=== PATIENT | male | born 1945 | race Caucasian/White ===

== ENCOUNTER 2016-12-10 10:04 | Emergency (ER) | payer MEDICARE, OTHER ==
[~2016-12-10] VITALS: Ht 167.6 cm; Wt 65.0 kg
[2016-12-10 10:08] VITALS: Ht 167.6 cm; Wt 65.0 kg
--- NOTE | 2016-12-10 11:45 | ERD ---
ER Documentation Chief Complaint Date/Time DATE: 12/10/16 TIME: 11:41 Chief Complaint [place] of growth on penis x 20 days HPI This is a 71-year-old male presents to the ER for penis pain. 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 Patient states that he is here to get this treated. Patient denies any fevers or chills. He denies any difficulty urinating, denies urinary frequency or dysuria. Denies any night sweats or weight loss. ROS 12 point review of systems was done, all negative except per HPI. Allergies Allergies: Coded Allergies: No Known Allergy (Unverified , 12/10/16) Physical Exam Vitals Vital Signs Date Time Temp Pulse Resp B/P Pulse Ox O2 Delivery O2 Flow Rate FiO2 12/10/16 10:08 97.8 89 16 120/71 99 Physical Exam GENERAL: The patient is well developed and appropriate for usual state of health , in no apparent distress. HEENT: Atraumatic. CHEST: Clear to auscultation bilaterally. There are no rales, wheezes or rhonchi. HEART: Regular rate and rhythm. No murmurs, clicks, rubs or gallops. : patient has an ulcerative, yellow lesion that is about 3cm*2cm in lenght to the left side of the head of the penis. no evidence oh phimosis or paraphimosis. no testicular pain or swelling NEURO: Alert and oriented. SKIN:The skin is warm and dry. Procedures/MDM This is a 71-year-old male presents to the ER with a lesion to his penis. Patient does have Medicare, I instructed the patient's daughter that she needs to follow-up with the urologist as soon as possible. I gave her a list of urologic urologist which except straight Medicare. At this time patient does not have any evidence of any urological emergency, and stable for outpatient follow-up. Patient is to follow-up with urologist as soon as possible return to ER sooner if symptoms worsen. Medical decision making sure with patient and his daughter he understands and agrees with plan. Departure Diagnosis: Primary Impression: Lesion of penis Condition: Stable Patient Instructions: Care of the Uncircumcised Penis Referrals: MEYL BROWN MD,LES SHAVER MD, MD Additional Instructions: Specialist:Usted tiene chacorta condicin mdica que requiere que leny a un especialista dentro de los prximos 1-2 marcos.POR FAVOR,CON BECKER SEGUIMIENTO DE PRIMARIA PHSICIAN refferal. SI USTED NO TIENE UN MDICO GENERAL Y / O USTED NO PUEDE PAGAR carlos a un mdico,los siguientes laureano RECURSOS sido suministrado a usted. ES BECKER RESPONSABILIDAD PARA SER VISTOS POR EL ESPECIALISTA: UROLOGO CHRISTIANO ATKINS Dec 10, 2016 11:45
== END 2016-12-10 12:29 | disposition home or self-care (01) ==
LOC: FTE 10:04
DX: N48.89 Other specified disorders of penis (principal)
CPT/HCPCS: 99282

== ENCOUNTER 2017-03-05 14:06 | Inpatient (IN) | payer MEDICARE, OTHER ==
[~2017-03-05] VITALS: Ht 167.6 cm; Wt 67.5 kg
--- NOTE | 2017-03-05 15:14 | ERD ---
ER Documentation Chief Complaint Chief Complaint PENILE CANCER. REFERRAL FROM D/T URINARY RETENTION & NEED FOR CATH HPI The patient is a 71-year-old male, presenting to the ER because he has not been able to void well for the last 5 days, complains of painful urination. He had history of penile cancer undergoing chemotherapy at [facility]. He denies fever, chills, neck pain, chest pain, dyspnea, vomiting, he complains of constipation. He does not smoke nor drink Past medical history: History of penile cancer Past surgical history: Penile cancer related surgery recently, the details unclear ROS All systems reviewed and are negative except as per history of present illness. Medications Home Meds Reported Medications Filgrastim-Sndz (Zarxio) 300 Mcg/0.5 Ml Syringe, 300 MCG IJ DAILY TAKE FOR 7 DAYS ,START DATE 03/04/17 03/05/17 Glipizide* (Glipizide*) 5 Mg Tablet, 5 MG PO AC BREAKFAST DINNER, TAB 03/05/17 Docusate Sodium* (Colace*) 100 Mg Capsule, 100 MG PO BID, #60 CAP 03/05/17 Metoprolol Tartrate* (Lopressor*) 25 Mg Tab, 25 MG PO BID, #60 TAB 03/05/17 Hydrocodone/Acetaminophen (Rockfall 10-325 Tablet) 1 Each Tablet, 1 EACH PO Q6H, TAB 03/05/17 Aspirin (Aspir-Low) 81 Mg Tablet.dr, 81 MG PO DAILY 03/05/17 Allergies Allergies: Coded Allergies: No Known Allergy (Unverified , 03/05/17) PMhx/Soc Hx Alcohol Use: No Hx Substance Use: No Hx Tobacco Use: No Physical Exam Vitals Vital Signs Date Time Temp Pulse Resp B/P Pulse Ox O2 Delivery O2 Flow Rate FiO2 03/05/17 14:13 98.6 83 18 101/63 97 Physical Exam Const: No acute distress. Head: Atraumatic. Eyes: Normal Conjunctiva. ENT: Normal External Ears, Nose and Mouth. Neck: Full range of motion. No meningismus. Resp: Clear to auscultation bilaterally. Cardio: Regular rate and rhythm. Abd: Soft, distended Urinary bladder, normal bowel sounds, non tender. Skin: No petechiae or rashes. Back: No midline or flank tenderness. Ext: No cyanosis, or edema. Neur: Awake and alert. No focal deficit Psych: Normal Mood and Affect. Result Diagram: 03/05/17 1555 03/05/17 1555 Results 24 hrs Laboratory Tests Test 03/05/17 15:55 03/05/17 17:00 03/05/17 17:07 White Blood Count 16.710^3/ul Red Blood Count 3.6110^6/ul Hemoglobin 12.6g/dl Hematocrit 37.0% Mean Corpuscular Volume 102.5fl Mean Corpuscular Hemoglobin 34.9pg Mean Corpuscular Hemoglobin Concent 34.1g/dl Red Cell Distribution Width 14.0% Platelet Count 43166^3/UL Mean Platelet Volume 11.3fl Neutrophils % 82.1% Segmented Neutrophils % (Manual) 90% Band Neutrophils % (Manual) 5% Lymphocytes % 4.0% Lymphocytes % (Manual) 4% Monocytes % 0.6% Monocytes % (Manual) 1% Eosinophils % 0.1% Basophils % 0.5% Nucleated Red Blood Cells % 0.0/100WBC Neutrophils # 13.710^3/ul Neutrophils # (Manual) 15.210^3/ul Band Neutrophils # 0.810^3/ul Absolute Lymphocytes (Manual) 0.610^3/ul Lymphocytes # 0.710^3/ul Monocytes # 0.110^3/ul Absolute Monocytes (Manual) 0.110^3/ul Eosinophils # 0.010^3/ul Basophils # 0.110^3/ul Nucleated Red Blood Cells # 0.010^3/ul Platelet Morphology Comment @See below Sodium Level 136mmol/L Potassium Level 3.4mmol/L Chloride Level 100mmol/L Carbon Dioxide Level 25mmol/L Anion Gap 14 Blood Urea Nitrogen 35mg/dl Creatinine 1.74mg/dl Glucose Level 166mg/dl Calcium Level 8.2mg/dl Urine Color STRAW Urine Clarity CLEAR Urine pH 6.0 Urine Specific [place] 1.011 Urine Ketones NEGATIVEmg/dL Urine Nitrite NEGATIVEmg/dL Urine Bilirubin NEGATIVEmg/dL Urine Urobilinogen NEGATIVEmg/dL Urine Leukocyte Esterase NEGATIVELeu/ul Urine Microscopic RBC 1/HPF Urine Microscopic WBC 3/HPF Urine Bacteria FEW/HPF Urine Hemoglobin 1+mg/dL Urine Glucose 1+mg/dL Urine Total Protein 1+mg/dl Bedside Urine pH (LAB) 7.0 Bedside Urine Protein (LAB) 1+ Bedside Urine Glucose (UA) 0.1% Bedside Urine Ketones (LAB) Negative Bedside Urine Blood 1+ Bedside Urine Nitrite (LAB) Negative Bedside Urine Leukocyte Esterase (L Negative Current Medications Medications (Trade) Dose Ordered Sig/Angelo Route PRN Reason Start Time Stop Time Status Last Admin Dose Admin Lidocaine/ Epinephrine (Xylocaine 1%/ Epi (Pf)) 30 ml NOW STAT INJ 03/05/17 15:51 03/05/17 15:53 DC Bisacodyl (Dulcolax Supp) 10 mg ONCE ONCE IL 03/05/17 17:30 03/05/17 17:31 DC 03/05/17 17:23 Ondansetron HCl (Zofran Odt) 4 mg ONCE STAT ODT 03/05/17 17:41 03/05/17 17:45 DC 03/05/17 18:14 Acetaminophen/ Hydrocodone Bitart 1 tab 1 tab ONCE ONCE PO 03/05/17 18:00 03/05/17 18:01 DC 03/05/17 18:14 Piperacillin Sod/ Tazobactam Sod (Zosyn 2.25gm/ 50ml (Pmx)) 50 ml @ 100 mls/hr ONCE ONCE IVPB 03/05/17 18:30 03/05/17 18:59 03/05/17 18:14 Procedures/[place] [address] Radiology Main Line: [phone] DIAGNOSTIC IMAGING REPORT Patient: RENAE MATA : 1945 Age: 71 Sex: M MR #: [id number] DOS: 03/05/17 0000 Ordering MD: RALF HENDERSON MD Location: E/R Room/Bed: PROCEDURE: XR Chest 1 View. CLINICAL INDICATION: Cough. TECHNIQUE: AP view of the chest was obtained. COMPARISON: None. FINDINGS: The cardiomediastinal silhouette is within normal limits. Diffuse mild interstitial prominence is seen in both lungs. No consolidations are identified. No pneumothorax is seen. Osseous structures are intact. IMPRESSION: Diffuse mild interstitial prominence in both lungs. Interstitial prominence could be chronic. RPTAT: AA .Gabino Queen MD, MD Date Time Electronically viewed and signed by .Gabino Queen MD, on 03/05/2017 17:05 .P/ CC: RALF HENDERSON MD MEDICAL MAKING DECISION: The patient is a 71-year-old male, presenting with acute kidney injury, acute dural tension, acute hypokalemia, acute constipation. He was treated with Rockfall 10 mg p.o. for pain, Zofran ODT for nausea, Zosyn IV empirically decode due to leukocytosis. The differential diagnoses considered include but are not limited to UTI, pyelonephritis, pneumonia. Consultation: I discussed the patient with the on-call urologist Dr. Walters, who came to the ER and inserted a suprapubic catheter Departure Diagnosis: Primary Impression: Retention of urine Additional Impressions: ANTHONY (acute kidney injury) Hypokalemia Constipation Condition: Stable Comments I discussed the findings with the patient. I discussed the patient with the on- call hospitalist Dr. Fowler at 6:25 PM. who was made aware of the lab, the treatment, the patient condition. The patient is admitted to [facility] Disclaimer: Inadvertent spelling and grammatical errors are likely due to EHR/ dictation software use and do not reflect on the overall quality of patient care. Also, please note that the electronic time recorded on this note does not necessarily reflect the actual time of the patient encounter. RALF HENDERSON MD Mar 05, 2017 15:14
[2017-03-05] MEDS ORDERED: LIDOCAINE 1%/EPI 30 ML INJ INJ STA (15:51)
[2017-03-05] MEDS ORDERED: ASPI81TA50 PO (16:04)
[2017-03-05 16:06] LABS: ABNORMAL IP MESSAGE 1; BASOPHIL # 0.1 10^3/ul (0.0-0.1); BASOPHILS % 0.5 % (0.0-2.0); EOSINOPHILS % 0.1 % (0.0-7.0); HEMOGLOBIN 12.6 g/dl (14.0-18.0); LYMPHOCYTES # 0.7 10^3/ul (0.8-2.9); MEAN CORPUSCULAR HEMOGLOBIN 34.9 pg (29.0-33.0); MEAN CORPUSCULAR HGB CONC 34.1 g/dl (32.0-37.0); MEAN CORPUSCULAR VOLUME 102.5 fl (82.0-101.0); MEAN PLATELET VOLUME 11.3 fl (7.4-10.4); MONOCYTE # 0.1 10^3/ul (0.3-0.9); MONOCYTES % 0.6 % (0.0-11.0); NEUTROPHIL # 13.7 10^3/ul (1.6-7.5); NEUTROPHILS % 82.1 % (39.0-77.0); PLATELET COUNT 151 10^3/UL (140-415); POSITIVE DIFF @See below; RED BLOOD COUNT 3.61 10^6/ul (4.70-6.10); WHITE BLOOD COUNT 16.7 10^3/ul (4.8-10.8)
[2017-03-05] MEDS ORDERED: HYDR-902 PO (16:06)
[2017-03-05] MEDS ORDERED: METO-448 PO (16:07)
[2017-03-05] MEDS ORDERED: DOCU-144 PO (16:08)
[2017-03-05] MEDS ORDERED: GLIP5TAB13 PO (16:08)
[2017-03-05] MEDS ORDERED: FILG300S2 IJ (16:09)
[2017-03-05 16:58] LABS: CALCIUM 8.2 mg/dl (8.4-10.2); CREATININE 1.74 mg/dl (0.61-1.24); POTASSIUM 3.4 mmol/L (3.5-5.1)
--- NOTE | 2017-03-05 17:05 | RADRPT ---
PROCEDURE: XR Chest 1 View. CLINICAL INDICATION: Cough. TECHNIQUE: AP view of the chest was obtained. COMPARISON: None. FINDINGS: The cardiomediastinal silhouette is within normal limits. Diffuse mild interstitial prominence is se en in both lungs. No consolidations are identified. No pneumothorax is seen. Osseous structures ar e intact. IMPRESSION: Diffuse mild interstitial prominence in both lungs. Interstitial prominence could be chronic. RPTAT: AA .Gabino Queen MD, Date Time Electronically viewed and signed by .Gabino Queen MD, on 03/05/2017 17:05 .P/
[2017-03-05 17:10] LABS: URINE BLOOD (Dip) POC 1+ (NEGATIVE)
[2017-03-05] MEDS ORDERED: BISACODYL 10 MG SUPP PR ONE (17:30)
[2017-03-05 17:34] LABS: MONOCYTES % (M) 1 % (0-11)
[2017-03-05] MEDS ORDERED: ONDANSETRON (ODT) 4 MG TAB ODT STA (17:41)
[2017-03-05 17:55] LABS: ADD UMIC YES; UR ASCORBIC ACID NEGATIVE (NEGATIVE); UR BACTERIA FEW /HPF (NONE SEEN); UR BILIRUBIN (Dip) NEGATIVE (NEGATIVE); UR BLOOD (Dip) 1+ mg/dL (NEGATIVE); UR CLARITY CLEAR (CLEAR); UR COLOR STRAW (YELLOW); UR GLUCOSE (Dip) 1+ mg/dL (NEGATIVE); UR KETONES (Dip) NEGATIVE (NEGATIVE); UR LEUKOCYTE ESTERASE (Dip) NEGATIVE Leu/ul (NEGATIVE); UR NITRITE (Dip) NEGATIVE (NEGATIVE); UR RBC 1 /HPF (0-5); UR SPECIFIC GRAVITY (Dip) 1.011 (1.003-1.030); UR TOTAL PROTEIN (Dip) 1+ mg/dl (NEGATIVE); UR UROBILINOGEN (Dip) NEGATIVE (NEGATIVE)
[2017-03-05] MEDS ORDERED: HYDROCODONE/APAP (10/325) TAB PO ONE (18:00)
[2017-03-05] MEDS ORDERED: PIPER-TAZO 2.25 GM (PMX) 50 ML IVPB ONE (18:30)
--- NOTE | 2017-03-05 19:19 | CONS ---
Date/Time of Note Date/Time of Note DATE: 03/05/17 TIME: 19:16 Assessment/Plan Assessment/Plan Chief Complaint/Hosp Course Inability to insert catheter I did an ultrasound on him his bladder is markedly distended Plan Obtain consent to insert a suprapubic tube Problems: Consultation Date/Type/Reason Admit Date/Time Date of Consultation: Mar 05, 2017 Type of Consultation: uro Reason for Consultation Urinary retention unable to insert catheter Hx of Present Illness Thank you for request for evaluation This gentleman is being treated for penile cancer at [facility]. He has been unable to urinate for several days and unable to defecate. The nurses and physicians were unable to insert a urethral catheter. His bladder is reportedly distended and they called me to see him. Patient does not speak Estonian were able to communicate through copy reader. Social History Smoking Status: Never smoker Exam/Review of Systems Vital Signs Vitals Vital Signs Date Time Temp Pulse Resp B/P Pulse Ox O2 Delivery O2 Flow Rate FiO2 03/05/17 14:13 98.6 83 18 101/63 97 Exam No distress Constitutional: alert, oriented Respiratory: clear to auscultation, normal air movement Gastrointestinal: soft (Bladder distended and tender) Genitourinary - Male: other (He has bilateral groin incisions consistent with lymph node dissection. His penis is atraumatic.) Results Result Diagram: 03/05/17 1555 03/05/17 1555 Results 24 hrs Laboratory Tests Test 03/05/17 15:55 03/05/17 17:00 03/05/17 17:07 White Blood Count 16.7 H Red Blood Count 3.61 L Hemoglobin 12.6 L Hematocrit 37.0 L Mean Corpuscular Volume 102.5 H Mean Corpuscular Hemoglobin 34.9 H Mean Corpuscular Hemoglobin Concent 34.1 Red Cell Distribution Width 14.0 Platelet Count 151 Mean Platelet Volume 11.3 H Neutrophils % 82.1 H Segmented Neutrophils % (Manual) 90 H Band Neutrophils % (Manual) 5 H Lymphocytes % 4.0 L Lymphocytes % (Manual) 4 L Monocytes % 0.6 Monocytes % (Manual) 1 Eosinophils % 0.1 Basophils % 0.5 Nucleated Red Blood Cells % 0.0 Neutrophils # 13.7 H Neutrophils # (Manual) 15.2 H Band Neutrophils # 0.8 H Absolute Lymphocytes (Manual) 0.6 L Lymphocytes # 0.7 L Monocytes # 0.1 L Absolute Monocytes (Manual) 0.1 L Eosinophils # 0.0 Basophils # 0.1 Nucleated Red Blood Cells # 0.0 Platelet Morphology Comment @See below Sodium Level 136 Potassium Level 3.4 L Chloride Level 100 Carbon Dioxide Level 25 Anion Gap 14 Blood Urea Nitrogen 35 H Creatinine 1.74 H Glucose Level 166 Calcium Level 8.2 L Urine Color STRAW Urine Clarity CLEAR Urine pH 6.0 Urine Specific [place] 1.011 Urine Ketones NEGATIVE Urine Nitrite NEGATIVE Urine Bilirubin NEGATIVE Urine Urobilinogen NEGATIVE Urine Leukocyte Esterase NEGATIVE Urine Microscopic RBC 1 Urine Microscopic WBC 3 Urine Bacteria FEW A Urine Hemoglobin 1+ H Urine Glucose 1+ H Urine Total Protein 1+ H Bedside Urine pH (LAB) 7.0 Bedside Urine Protein (LAB) 1+ H Bedside Urine Glucose (UA) 0.1% H Bedside Urine Ketones (LAB) Negative Bedside Urine Blood 1+ H Bedside Urine Nitrite (LAB) Negative Bedside Urine Leukocyte Esterase (L Negative MELY BROWN MD Mar 05, 2017 19:19
--- NOTE | 2017-03-05 19:21 | OPR ---
Date/Time of Note Date/Time of Note DATE: 03/05/17 TIME: 19:19 Operative Report Procedure Date: Mar 05, 2017 Preoperative Diagnosis Urinary retention inability to insert Ibrahim catheter Postoperative Diagnosis Same Operation/Procedure Performed Insertion of suprapubic tube Surgeon see signature line Hot Braider None Anesthesia Type: other (Local anesthesia) Estimated Blood Loss: minimal Transfusion none Specimen Urine Grafts/Implants Suprapubic tube none Complications none Procedure Description Suprapubic area is prepped and draped in sterile fashion the location of penetration is identified by ultrasound. The area is anesthetized with 1% lidocaine with epinephrine. Spinal needle was used to confirm. A buster is made in the incision. A Bard suprapubic tube was inserted without difficulty and pushed into the right position. Good flow and drainage is obtained which is blood free. The balloon is inflated. Sutured into position with silk suture. Dressing is applied. Patient tolerated procedure well. This was performed in the emergency room MELY BROWN MD Mar 05, 2017 19:21
[2017-03-05] MEDS ORDERED: DOCUSATE SODIUM 100 MG CAP PO PRN (19:30)
[2017-03-05] MEDS ORDERED: BISACODYL 10 MG SUPP PR PRN (19:30)
[2017-03-05] MEDS ORDERED: NA PHOSPHATE/BIPHOS 133 ML ENEMA PR PRN (19:30)
[2017-03-05] MEDS ORDERED: ONDANSETRON 4 MG INJ IV PRN (19:30)
[2017-03-05] MEDS ORDERED: ACETAMINOPHEN 325 MG TAB PO PRN (19:30)
[2017-03-05] MEDS ORDERED: NACL 0.9% 3 ML SYG IV SCH (19:30)
[2017-03-05] MEDS ORDERED: OXYCODONE/ACETAMINOPHEN (5/325) TAB PO PRN (19:30)
[2017-03-05] MEDS ORDERED: morphine 2 MG INJ IV PRN (19:30)
[2017-03-05] MEDS ORDERED: BISACODYL (EC) 5 MG TAB PO PRN (19:30)
[2017-03-05 20:40] VITALS: Ht 167.6 cm; Wt 67.5 kg
[2017-03-05 21:00] VITALS: BP 128/64; RESP 19
[2017-03-05] MEDS ORDERED: SENNA/DOCUSATE NA (8.6MG/50MG) TAB PO SCH (21:00)
--- NOTE | 2017-03-05 22:04 | HP ---
Date/Time of Note Date/Time of Note DATE: 03/05/17 TIME: 21:58 Assessment/Plan VTE Prophylaxis VTE Prophylaxis Intervention: ambulation Lines/Catheters IV Catheter Type (from Nrsg): Peripheral IV Reason Cath still needed: urinary retention (Suprapubic catheter) Assessment/Plan Chief Complaint/Hosp Course Assessment and plan 1. Acute renal failure. stable treat obstruction 2. Obstructive uropathy. Suprapubic catheter status. May need home health 3. Penile cancer. Outpatient oncology 4. Chronic diabetes metabolic syndrome 5. Problems: HPI/ROS Admit Date/Time Admit Date/Time Hx of Present Illness 71-year-old gentleman who has not moved his urine in 3 days. Was referred for by primary for urology eval. In ER unable to Place Ibrahim. Urology placed suprapubic. Patient states of having constipation for 5 days. No witnessed hematuria hematochezia. No fever chills vomiting. Possible nausea. Mild edema. Denies any urinary issues prior to aminuria. Patient had surgery about a month ago for penile cancer. ER: Stable vital signs. ROS Neuro: No loss of speech or vision or headache Cardiovascular: No chest pain no dyspnea positive edema Lungs: No cough no wheezing no fever Abdomen: Pain nausea no vomiting. Positive constipation Genitourinary: Oliguria lower abdominal pain no fever Musculoskeletal: Edema but no gait dysfunction, Psychiatry: No anxiety agitation depression Constitutional: No fevers or chills. Weight loss? Hematologic; no hematochezia melena hematuria Endocrine: Positive diabetes no thyroid dysfunction or dyslipidemia PMH/Family/Social Past Medical History Medical History: cancer (Penial Ca; status post surgery.), diabetes, other ( Metabolic syndrome. Cataracts) Past Surgical History Penile cancer resection Family History Significant Family History: other (Stomach cancer) Social History Alcohol Use: none Smoking Status: Former smoker Exam/Review of Systems Vital Signs Vitals Vital Signs Date Time Temp Pulse Resp B/P Pulse Ox O2 Delivery O2 Flow Rate FiO2 03/05/17 14:13 98.6 83 18 101/63 97 Exam Exam No pallor icterus adenopathy or carotid bruits Regular no murmur rub gallop Clear bilaterally Bs + mild tender; nd; no r/r/g.Suprapubic C/D/I Mild edema negative Homans Labs Result Diagram: 03/05/17 1555 03/05/17 1552 Medications Medications Current Medications Sodium Chloride (NS) 1,000 ml @ 80 mls/hr [id number] IV ; Start 03/05/17 at 19:23 Ondansetron HCl (Zofran Inj) 4 mg Q6H PRN IV NAUSEA AND/OR VOMITING; Start at 19:30 Acetaminophen (Tylenol Tab) 650 mg Q6H PRN PO PAIN LEVEL 1-3 OR FEVER; Start 03/05/17 at 19:30 Oxycodone/ Acetaminophen (Percocet (5/ 325)) 1 tab Q6H PRN PO MODERATE PAIN LEVEL 4-6; Start 03/05/17 at 19:30 Morphine Sulfate (morphine) 2 mg Q4H PRN IV SEVERE PAIN LEVEL 7-10; Start at 19:30 Docusate Sodium (Colace) 100 mg Q12H PRN PO CONSTIPATION; Start 03/05/17 at 19 :30 Bisacodyl (Dulcolax) 5 mg DAILY PRN PO CONSTIPATION; Start 03/05/17 at 19:30 Bisacodyl (Dulcolax Supp) 10 mg DAILY PRN [place] CONSTIPATION; Start 03/05/17 at 19:30 Sodium Biphosphate/ Sodium Phosphate (Fleet Enema) 133 ml DAILY PRN [place] CONSTIPATION; Start 03/05/17 at 19:30 Enoxaparin Sodium (Lovenox) 30 mg DAILY SC ; Start 03/06/17 at 09:00 Senna/Docusate Sodium (Senokot-S) 2 tab HS PO ; Start 03/05/17 at 21:00 HAILE BANKS MD Mar 05, 2017 22:04
[2017-03-05] MEDS: SOD CHLORIDE 0.9% 1,000 ML IV SCH (22:35)
[2017-03-05] MEDS: INSULIN ASPART [NOVOLOG] 3 ML PEN SC SCH (23:06)
[2017-03-05] MEDS ORDERED: GLUCOSE GEL 15 GRAM TUBE BUCCAL PRN (23:30)
[2017-03-05] MEDS ORDERED: GLUCOSE GEL 15 GRAM TUBE PO PRN ×2 (23:30)
[2017-03-05] MEDS ORDERED: GLUCAGON 1 MG INJ IM PRN (23:30)
[2017-03-05] MEDS ORDERED: DEXTROSE 50% 50 ML SYRINGE IV PRN ×2 (23:30)
--- NOTE | 2017-03-06 00:50 | RADRPT ---
PROCEDURE: ULTRASOUND RETROPERITONEUM CLINICAL INDICATION: 71-year-old male with flank pain. TECHNIQUE: Multiple sonographic images of the retroperitoneum were obtained. The images were revi ewed on a PACS workstation. COMPARISON: None. FINDINGS: The kidneys are well visualized. The right kidney measures 9.8 x 5.3 x 5.2 cm. The left kidney measu res 10.7 x 5.7 x 5.1 cm. There is a left lower pole renal cyst measuring 11 x 9 mm. There is mild bi lateral hydronephrosis. There is a suprapubic catheter identified within the bladder with a small r esidual amount of urine identified. Incidentally identified is a shadowing stone within the gallblad kinjal measuring approximate 2.1 cm. IMPRESSION: 1. Mild bilateral hydronephrosis. 2. Left lower pole renal cyst. 3. Suprapubic catheter within the bladder. 4. Incidental gallstone. .Gomez Mcfarland MD, Date Time Electronically viewed and signed by .Gomez Mcfarland MD, on 03/06/2017 00:50 .M/
[2017-03-06] MEDS ORDERED: ACCU-CHEK XX SCH ×2 (02:00)
[2017-03-06 05:15] LABS: ABNORMAL IP MESSAGE 1; BASOPHIL # 0.1 10^3/ul (0.0-0.1); BASOPHILS % 0.8 % (0.0-2.0); EOSINOPHILS # 0.1 10^3/ul (0.0-0.5); EOSINOPHILS % 0.8 % (0.0-7.0); HEMATOCRIT 37.5 % (42.0-52.0); HEMOGLOBIN 12.7 g/dl (14.0-18.0); LYMPHOCYTES # 0.8 10^3/ul (0.8-2.9); LYMPHOCYTES % 6.8 % (15.0-51.0); MEAN CORPUSCULAR HEMOGLOBIN 34.4 pg (29.0-33.0); MEAN CORPUSCULAR HGB CONC 33.9 g/dl (32.0-37.0); MEAN CORPUSCULAR VOLUME 101.6 fl (82.0-101.0); MEAN PLATELET VOLUME 11.6 fl (7.4-10.4); MONOCYTE # 0.1 10^3/ul (0.3-0.9); NEUTROPHIL # 8.7 10^3/ul (1.6-7.5); NEUTROPHILS % 73.9 % (39.0-77.0); PLATELET COUNT 149 10^3/UL (140-415); POSITIVE DIFF @See below; RED BLOOD COUNT 3.69 10^6/ul (4.70-6.10); RED CELL DISTRIBUTION WIDTH 13.7 % (11.5-14.5); WHITE BLOOD COUNT 11.8 10^3/ul (4.8-10.8)
[2017-03-06 05:29] LABS: INR 0.9; PROTIME 12.1 Sec (12.2-14.2); PT RATIO 0.9
[2017-03-06 05:52] LABS: ALBUMIN 3.1 g/dl (3.3-4.9); BILIRUBIN,INDIRECT 0.6 mg/dl (0-1.1); BILIRUBIN,TOTAL 0.6 mg/dl (0.2-1.3); CALCIUM 8.7 mg/dl (8.4-10.2); CREATININE 1.56 mg/dl (0.61-1.24); MAGNESIUM 2.6 mg/dl (1.7-2.5); POTASSIUM 3.5 mmol/L (3.5-5.1); TOTAL PROTEIN 6.2 g/dl (6.1-8.1)
[2017-03-06 05:59] LABS: ALBUMIN 3.2 g/dl (3.3-4.9); ALBUMIN/GLOBULIN RATIO 0.91; BILIRUBIN,INDIRECT 0.6 mg/dl (0-1.1); BILIRUBIN,TOTAL 0.6 mg/dl (0.2-1.3); CALCIUM 8.6 mg/dl (8.4-10.2); CREATININE 1.64 mg/dl (0.61-1.24); POTASSIUM 3.4 mmol/L (3.5-5.1); TOTAL PROTEIN 6.7 g/dl (6.1-8.1)
[2017-03-06 06:16] LABS: THYROID STIMULATING HORMONE 0.276 MIU/L (0.465-4.680)
[2017-03-06 07:43] VITALS: BP 104/76; RESP 20
[2017-03-06] MEDS: INSULIN ASPART [NOVOLOG] 3 ML PEN SC SCH ×3 (08:00→17:12)
[2017-03-06 08:02] LABS: EOSINOPHILS % (M) 1 % (0-7); MONOCYTES % (M) 1 % (0-11); PLATELET ESTIMATE NORMAL; REACTIVE LYMPHOCYTES% (M) 1 % (0-0)
[2017-03-06] MEDS: SOD CHLORIDE 0.9% 1,000 ML IV SCH (08:22)
[2017-03-06] MEDS ORDERED: POLYETHYLENE GLYCOL 17 GM PACKET PO SCH (09:00)
[2017-03-06] MEDS ORDERED: ENOXAPARIN 30 MG/0.3 ML SYG SC SCH (09:00)
[2017-03-06] MEDS ORDERED: POTASSIUM CHLORIDE (SR) 20 MEQ TAB PO STA (15:04)
--- NOTE | 2017-03-06 15:26 | PN ---
Date/Time of Note Date/Time of Note DATE: 03/06/17 TIME: 15:05 Assessment/Plan VTE Prophylaxis VTE Prophylaxis Intervention: SCD's Lines/Catheters IV Catheter Type (from Nrs): Peripheral IV Urinary Cath still in place: No Assessment/Plan Assessment/Plan 1. Obstructive uropathy. S/p suprapubic catheter, stable, needs teaching for emptying the bag, home with home health tomorrow 2. Acute renal failure. stable, follow up with BMP 3. Penile cancer. Outpatient oncology 4. DM, on insulins 5. Hypokalemia, KCL Subjective 24 Hr Interval Summary Free Text/Dictation afebrile. Exam/Review of Systems Vital Signs Vitals Vital Signs Date Time Temp Pulse Resp B/P Pulse Ox O2 Delivery O2 Flow Rate FiO2 03/06/17 07:43 98.3 78 20 104/76 98 Intake and Output 03/05/17 03/05/17 03/06/17 15:00 23:00 07:00 Intake Total 1310 ml Output Total 1800 ml Balance -490 ml Exam Constitutional: alert, oriented, well developed Psych: nl mood/affect, no complaints Head: atraumatic, normocephalic Eyes: EOMI, PERRL, nl conjunctiva, nl lids, nl sclera ENMT: nl external ears & nose, nl lips & teeth, nl nasal mucosa & septum Neck: non-tender, supple Respiratory: clear to auscultation, normal air movement, No congested cough, No crackles/rales, No diminished breath sounds, No intercostal retraction, No labored breathing, No other, No respirations, No tactile fremitus, No wheezing Cardiovascular: nl pulses, regular rate and rhythm, No S3, No S4, No bruits, No diastolic murmur, No edema, No gallop, No irregular rhythm, No jugular venous distention (JVD), No murmurs/extra sounds, No other, No rub, No systolic murmur Gastrointestinal: nl liver, spleen, non-tender, soft, No ascites, No bowel sounds, No distended, No firm, No hepatomegaly, No mass , No other, No rebound or guarding, No splenomegaly, No surgical scars, No tender Musculoskeletal: nl extremities to inspection Extremities: normal pulses, No calf tenderness, No clubbing, No cyanosis, No edema, No other, No palpable cord, No pitting pedal edema, No tenderness Neurological: [employer] II-XII intact, nl mental status, nl speech, nl strength Skin: nl turgor Lymph: nl lymph nodes Results Result Diagram: 03/06/17 0502 03/06/17 0502 Results 24 hrs Laboratory Tests Test 03/05/17 15:55 03/05/17 17:00 03/05/17 17:07 03/05/17 23:03 White Blood Count 16.7 H Red Blood Count 3.61 L Hemoglobin 12.6 L Hematocrit 37.0 L Mean Corpuscular Volume 102.5 H Mean Corpuscular Hemoglobin 34.9 H Mean Corpuscular Hemoglobin Concent 34.1 Red Cell Distribution Width 14.0 Platelet Count 151 Mean Platelet Volume 11.3 H Neutrophils % 82.1 H Segmented Neutrophils % (Manual) 90 H Band Neutrophils % (Manual) 5 H Lymphocytes % 4.0 L Lymphocytes % (Manual) 4 L Monocytes % 0.6 Monocytes % (Manual) 1 Eosinophils % 0.1 Basophils % 0.5 Nucleated Red Blood Cells % 0.0 Neutrophils # 13.7 H Neutrophils # (Manual) 15.2 H Band Neutrophils # 0.8 H Absolute Lymphocytes (Manual) 0.6 L Lymphocytes # 0.7 L Monocytes # 0.1 L Absolute Monocytes (Manual) 0.1 L Eosinophils # 0.0 Basophils # 0.1 Nucleated Red Blood Cells # 0.0 Platelet Morphology Comment @See below Sodium Level 136 Potassium Level 3.4 L Chloride Level 100 Carbon Dioxide Level 25 Anion Gap 14 Blood Urea Nitrogen 35 H Creatinine 1.74 H Glucose Level 166 Calcium Level 8.2 L Urine Color STRAW Urine Clarity CLEAR Urine pH 6.0 Urine Specific [place] 1.011 Urine Ketones NEGATIVE Urine Nitrite NEGATIVE Urine Bilirubin NEGATIVE Urine Urobilinogen NEGATIVE Urine Leukocyte Esterase NEGATIVE Urine Microscopic RBC 1 Urine Microscopic WBC 3 Urine Bacteria FEW A Urine Hemoglobin 1+ H Urine Glucose 1+ H Urine Total Protein 1+ H Bedside Urine pH (LAB) 7.0 Bedside Urine Protein (LAB) 1+ H Bedside Urine Glucose (UA) 0.1% H Bedside Urine Ketones (LAB) Negative Bedside Urine Blood 1+ H Bedside Urine Nitrite (LAB) Negative Bedside Urine Leukocyte Esterase (L Negative Bedside Glucose 161 Test 03/06/17 05:02 03/06/17 07:58 03/06/17 12:06 White Blood Count 11.8 #H Red Blood Count 3.69 L Hemoglobin 12.7 L Hematocrit 37.5 L Mean Corpuscular Volume 101.6 H Mean Corpuscular Hemoglobin 34.4 H Mean Corpuscular Hemoglobin Concent 33.9 Red Cell Distribution Width 13.7 Platelet Count 149 Mean Platelet Volume 11.6 H Neutrophils % 73.9 Segmented Neutrophils % (Manual) 88 H Band Neutrophils % (Manual) 2 Lymphocytes % 6.8 L Lymphocytes % (Manual) 7 L Reactive Lymphocytes % (Manual) 1 H Monocytes % 1.0 Monocytes % (Manual) 1 Eosinophils % 0.8 Eosinophils % (Manual) 1 Basophils % 0.8 Nucleated Red Blood Cells % 0.0 Neutrophils # 8.7 H Neutrophils # (Manual) 10.4 H Band Neutrophils # 0.2 Absolute Lymphocytes (Manual) 0.8 Lymphocytes # 0.8 Reactive Lymphocytes # 0.1 H Monocytes # 0.1 L Absolute Monocytes (Manual) 0.1 L Eosinophils # 0.1 Basophils # 0.1 Nucleated Red Blood Cells # 0.0 Platelet Estimate NORMAL Prothrombin Time 12.1 L Prothrombin Time Ratio 0.9 INR International Normalized Ratio 0.90 Sodium Level 140 Potassium Level 3.4 L Chloride Level 106 Carbon Dioxide Level 26 Anion Gap 11 Blood Urea Nitrogen 29 H Creatinine 1.64 H Glucose Level 175 Hemoglobin A1c 5.7 Calcium Level 8.6 Magnesium Level 2.6 H Total Bilirubin 0.6 Direct Bilirubin 0.00 Indirect Bilirubin 0.6 Aspartate Amino Transf (AST/SGOT) 26 Alanine Aminotransferase (ALT/SGPT) 37 Alkaline Phosphatase 60 Total Protein 6.7 Albumin 3.2 L Globulin 3.50 H Albumin/Globulin Ratio 0.91 Thyroid Stimulating Hormone (TSH) 0.276 L Bedside Glucose 138 136 Medications Medications Current Medications Sodium Chloride (NS) 1,000 ml @ 80 mls/hr [id number] IV Last administered on 08:22; Admin Dose 80 MLS/HR; Start 03/05/17 at 19:23 Ondansetron HCl (Zofran Inj) 4 mg Q6H PRN IV NAUSEA AND/OR VOMITING Last administered on 03/06/17 02:07; Admin Dose 4 MG; Start 03/05/17 at 19:30 Acetaminophen (Tylenol Tab) 650 mg Q6H PRN PO PAIN LEVEL 1-3 OR FEVER; Start 03/05/17 at 19:30 Oxycodone/ Acetaminophen (Percocet (5/ 325)) 1 tab Q6H PRN PO MODERATE PAIN LEVEL 4-6; Start 03/05/17 at 19:30 Morphine Sulfate (morphine) 2 mg Q4H PRN IV SEVERE PAIN LEVEL 7-10; Start at 19:30 Docusate Sodium (Colace) 100 mg Q12H PRN PO CONSTIPATION; Start 03/05/17 at 19 :30 Bisacodyl (Dulcolax) 5 mg DAILY PRN PO CONSTIPATION; Start 03/05/17 at 19:30 Bisacodyl (Dulcolax Supp) 10 mg DAILY PRN [place] CONSTIPATION; Start 03/05/17 at 19:30 Sodium Biphosphate/ Sodium Phosphate (Fleet Enema) 133 ml DAILY PRN [place] CONSTIPATION; Start 03/05/17 at 19:30 Enoxaparin Sodium (Lovenox) 30 mg DAILY SC Last administered on 03/06/17 08: 19; Admin Dose 30 MG; Start 03/06/17 at 09:00 Senna/Docusate Sodium (Senokot-S) 2 tab HS PO Last administered on 03/05/17 23:01; Admin Dose 2 TAB; Start 03/05/17 at 21:00 Polyethylene Glycol (Miralax) 17 gm BID PO Last administered on 03/06/17 08: 18; Admin Dose 17 GM; Start 03/06/17 at 09:00 Insulin Glargine (Lantus) 10 unit DAILY@20 SC ; Start 03/06/17 at 20:00 Diagnostic Test (Pha) (Accu-Chek) 1 ea 02 XX ; Start 03/06/17 at 02:00 Miscellaneous Information 1 ea NOTE XX ; Start 03/05/17 at 23:30 Glucose (Glutose) 15 gm Q15M PRN PO DECREASED GLUCOSE; Start 03/05/17 at 23:30 Glucose (Glutose) 22.5 gm Q15M PRN PO DECREASED GLUCOSE; Start 03/05/17 at 23: 30 Dextrose (D50w Syringe) 25 ml Q15M PRN IV DECREASED GLUCOSE; Start 03/05/17 at 23:30 Dextrose (D50w Syringe) 50 ml Q15M PRN IV DECREASED GLUCOSE; Start 10/24/17 at 23:30 Glucagon (Glucagen) 1 mg Q15M PRN IM DECREASED GLUCOSE; Start 03/05/17 at 23: 30 Glucose (Glutose) 15 gm Q15M PRN BUCCAL DECREASED GLUCOSE; Start 03/05/17 at 23:30 CHARLES VALERA MD Mar 06, 2017 15:25
[2017-03-06] MEDS ORDERED: INSULIN GLARGINE [LANtus] 3 ML PEN SC SCH (20:00)
--- NOTE | 2017-03-07 12:56 | DS ---
Date/Time of Note Date/Time of Note DATE: 03/07/17 TIME: 12:52 Discharge Summary Admission/Discharge Info Admit Date/Time Mar 05, 2017 at 18:29 Discharge Date/Time Mar 06, 2017 at 18:40 Discharge Diagnosis 1. Obstructive uropathy. S/p suprapubic catheter, stable, needs teaching for emptying the bag, home with home health 2. Acute renal failure. stable, follow up with PCP 3. Penile cancer. Outpatient oncology 4. DM, on insulins 5. Hypokalemia, KCL given Patient Condition: Stable Hx of Present Illness 71-year-old gentleman who has not moved his urine in 3 days. Was referred for by primary for urology eval. In ER unable to Place Ibrahim. Urology placed suprapubic. Patient states of having constipation for 5 days. No witnessed hematuria hematochezia. No fever chills vomiting. Possible nausea. Mild edema. Denies any urinary issues prior to aminuria. Patient had surgery about a month ago for penile cancer. Hospital Course Patient has been stable after admission. Suprapubic catheter works well. I had a long discussion with patient and family about urinary retention and suprapubic catheter care. He will follow up with urology outpatient. K was 3.4, KCL was given orally. WBC is 11.8. Patient and family are instructed to stopped neupogen that he has been getting after chemotherapy. Home Meds Reported Medications Glipizide* (Glipizide*) 5 Mg Tablet, 5 MG PO AC BREAKFAST DINNER, TAB 03/05/17 Docusate Sodium* (Colace*) 100 Mg Capsule, 100 MG PO BID, #60 CAP 03/05/17 Metoprolol Tartrate* (Lopressor*) 25 Mg Tab, 25 MG PO BID, #60 TAB 03/05/17 Hydrocodone/Acetaminophen ([place] 10-325 Tablet) 1 Each Tablet, 1 EACH PO Q6H, TAB 03/05/17 Aspirin (Aspir-Low) 81 Mg Tablet., 81 MG PO DAILY 03/05/17 Discontinued Reported Medications Filgrastim-Sndz (Zarxio) 300 Mcg/0.5 Ml Syringe, 300 MCG IJ DAILY TAKE FOR 7 DAYS ,START DATE 03/04/17 03/05/17 Follow-up Plan PCP, urology and oncology Primary Care Provider Not On Staff Doctor Pending Labs Laboratory Tests Test 03/06/17 17:05 03/06/17 17:06 Bedside Glucose 160mg/dL (70-220) 161mg/dL (70-220) CHARLES VALERA MD Mar 07, 2017 12:56
--- NOTE | 2017-03-07 13:29 | RADRPT ---
Vent Rate: 93 bpm RR Interval: 0 msec MS Interval: 132 msec QRS Duration: 82 msec QT Interval: 346 msec QTC Interval: 430 msec P-R-T [place]: 78 - 80 - 76 degrees Normal sinus rhythm Normal ECG Electronically Signed By: Magdi Jackson [id number]
== END 2017-03-06 18:40 | disposition home or self-care (01) | DRG 699 ==
LOC: E/R 14:06 → PP2 18:29
PROVIDERS: ADMIT Hospitalist; ATTEND Hospitalist
PROC: 0T9B30Z Drainage of Bladder with Drainage Device, Percutaneous Approach (ICD-10-PCS; principal; 2017-03-05)
DX: N13.9 Obstructive and reflux uropathy, unspecified (principal); N17.9 Acute kidney failure, unspecified; R33.9 Retention of urine, unspecified; E87.6 Hypokalemia; K59.00 Constipation, unspecified; C61 Malignant neoplasm of prostate; E11.9 Type 2 diabetes mellitus without complications; Z79.4 Long term (current) use of insulin
CPT/HCPCS: 36415; 71010; 76775; 80048; 80053; 81001; 81003; 82962; 83036; 83735; 84443; 85025; 85610; 87040; 87081; 87086; 93005; 96374; J1650; J1815; J2405; J2543; J7030

== ENCOUNTER 2017-03-08 11:58 | Inpatient (IN) | payer MEDICARE, OTHER ==
[~2017-03-08] VITALS: Ht 170.2 cm; Wt 66.5 kg
[~2017-03-08 11:58] MED LIST: ASPI81TA50 PO; DOCU-144 PO; GLIP5TAB13 PO; HYDR-902 PO; METO-448 PO
[2017-03-08] MEDS ORDERED: SODIUM CHLORIDE 0.9% 1L BAG IV* STA (12:36)
[2017-03-08] MEDS ORDERED: DILTIAZEM 25 MG INJ ONE (13:44)
--- NOTE | 2017-03-08 13:44 | RADRPT ---
PROCEDURE: XR Chest 1 View. CLINICAL INDICATION: Shortness of breath. Sepsis. TECHNIQUE: AP view of the chest was obtained. COMPARISON: March 05, 2017 FINDINGS: The cardiomediastinal silhouette is within normal limits. No consolidations are identified. No pneu mothorax is seen. Osseous structures are intact. IMPRESSION: No visualized active disease. RPTAT: AA .Gabino Queen MD, Date Time Electronically viewed and signed by .Gabino Queen MD, on 03/08/2017 13:44 .P/
[2017-03-08] MEDS ORDERED: POTASSIUM CHLORIDE 250 ML IVPB ONE (14:00)
[2017-03-08] MEDS ORDERED: ONDANSETRON 4 MG INJ IV PRN ×2 (14:30→15:30)
[2017-03-08] MEDS ORDERED: ACETAMINOPHEN 325 MG TAB PO PRN ×2 (14:30→15:30)
[2017-03-08] MEDS ORDERED: DILTIAZEM 25 MG INJ IV ONE (14:30)
[2017-03-08] MEDS: DILTIAZEM 25 MG INJ IV ONE ×2 (14:32→14:34)
--- NOTE | 2017-03-08 14:40 | ERD ---
ER Documentation Chief Complaint Chief Complaint fatigue and hypotension since am (last chemo on 03/03 for penile CA) HPI This is a 71-year-old male with a history of penile cancer, hypertension, and urinary retention with recent urostomy tube placement who presents to the emergency room today for evaluation of low blood pressure. This patient is here with his daughter who is giving the majority of the history and states that this patient has been feeling weak and she noted a blood pressure that was low today. She brought the patient in for evaluation. The patient states that he is feeling weak, and states that his last chemo was on March 03 done at [facility]. The patient denies any chest pain but does state he feels his heart racing at times. He came to the ER today for evaluation and denies any relieving factors for his symptoms. ROS All systems reviewed and are negative except as per history of present illness. Medications Home Meds Reported Medications Glipizide* (Glipizide*) 5 Mg Tablet, 5 MG PO AC BREAKFAST DINNER, TAB 03/05/17 Docusate Sodium* (Colace*) 100 Mg Capsule, 100 MG PO BID, #60 CAP 03/05/17 Metoprolol Tartrate* (Lopressor*) 25 Mg Tab, 25 MG PO BID, #60 TAB 03/05/17 Hydrocodone/Acetaminophen ([place] 10-325 Tablet) 1 Each Tablet, 1 EACH PO Q6H, TAB 03/05/17 Aspirin (Aspir-Low) 81 Mg Tablet.dr, 81 MG PO DAILY 03/05/17 Discontinued Reported Medications Filgrastim-Sndz (Zarxio) 300 Mcg/0.5 Ml Syringe, 300 MCG IJ DAILY TAKE FOR 7 DAYS ,START DATE 03/04/17 03/05/17 Allergies Allergies: Coded Allergies: No Known Allergy (Unverified , 03/05/17) PMhx/Soc History of Surgery: No Anesthesia Reaction: No Hx Neurological Disorder: No Hx Respiratory Disorders: No Hx Cardiac Disorders: No Hx Psychiatric Problems: No Hx Miscellaneous Medical Probl: Yes (CA, suprapubic cath placed) Hx Alcohol Use: No Hx Substance Use: No Hx Tobacco Use: No Smoking Status: Never smoker Physical Exam Vitals Vital Signs Date Time Temp Pulse Resp B/P Pulse Ox O2 Delivery O2 Flow Rate FiO2 03/08/17 14:20 122 106/75 03/08/17 13:03 Nasal Cannula 03/08/17 12:03 98.8 70 20 88/51 99 Physical Exam INITIAL VITAL SIGNS: Reviewed by me GENERAL: The patient is frail-appearing elderly gentleman, no acute distress HEENT: Dry mucous membranes pupils equal, round, and reactive to light. EOMI. There is no scleral icterus. NECK: C-spine is soft and supple, there is no meningismus. There is no cervical lymphadenopathy. LUNGS: Clear to auscultation bilaterally. There are no rales, wheezes or rhonchi. HEART: Irregularly irregular rhythm, no murmurs, clicks, rubs or gallops. ABDOMEN: Urostomy tube in place, soft, non-tender, non-distended. There are bowel sounds in all four quadrants. No rebound or guarding. EXTREMITIES: There is no peripheral cyanosis or edema. No focal swelling or erythema. NEUROLOGICAL: The patient moves all four extremities with 5/5 strength. Cranial nerves II - XII are intact. Normal gait. Alert and oriented SKIN: There is no apparent rash or petechiae. HEME/LYMPHATIC: There is no evidence of excessive bruising or lymphedema. PSYCHIATRIC: The patient does not appear anxious or depressed. Result Diagram: 03/08/17 1300 03/08/17 1300 Results 24 hrs Laboratory Tests Test 03/08/17 13:00 White Blood Count 6.610^3/ul Red Blood Count 3.8810^6/ul Hemoglobin 13.3g/dl Hematocrit 39.0% Mean Corpuscular Volume 100.5fl Mean Corpuscular Hemoglobin 34.3pg Mean Corpuscular Hemoglobin Concent 34.1g/dl Red Cell Distribution Width 13.3% Platelet Count 28176^3/UL Mean Platelet Volume 12.5fl Neutrophils % % Segmented Neutrophils % (Manual) 64% Band Neutrophils % (Manual) 6% Lymphocytes % % Lymphocytes % (Manual) 26% Monocytes % % Monocytes % (Manual) 2% Eosinophils % % Eosinophils % (Manual) 1% Basophils % % Basophils % (Manual) 1% Nucleated Red Blood Cells % 0.0/100WBC Neutrophils # 10^3/ul Neutrophils # (Manual) 4.210^3/ul Band Neutrophils # 0.310^3/ul Absolute Lymphocytes (Manual) 1.710^3/ul Lymphocytes # 10^3/ul Monocytes # 10^3/ul Absolute Monocytes (Manual) 0.110^3/ul Eosinophils # 10^3/ul Basophils # 10^3/ul Basophils # (Manual) 0.010^3/ul Nucleated Red Blood Cells # 10^3/ul Platelet Estimate DECREASED Polychromasia 1+ Anisocytosis 1+ Prothrombin Time 12.1Sec Prothrombin Time Ratio 0.9 INR International Normalized Ratio 0.90 Activated Partial Thromboplast Time 28.2Sec Sodium Level 138mmol/L Potassium Level 3.0mmol/L Chloride Level 101mmol/L Carbon Dioxide Level 25mmol/L Anion Gap 15 Blood Urea Nitrogen 21mg/dl Creatinine 1.18mg/dl Glucose Level 209mg/dl Lactic Acid Level 2.8mmol/L Calcium Level 8.4mg/dl Total Bilirubin 0.6mg/dl Direct Bilirubin 0.00mg/dl Indirect Bilirubin 0.6mg/dl Aspartate Amino Transf (AST/SGOT) 30IU/L Alanine Aminotransferase (ALT/SGPT) 47IU/L Alkaline Phosphatase 69IU/L Troponin I < 0.012ng/ml Total Protein 6.6g/dl Albumin 3.9g/dl Globulin 2.70g/dl Albumin/Globulin Ratio 1.44 Current Medications Medications (Trade) Dose Ordered Sig/Angelo Route PRN Reason Start Time Stop Time Status Last Admin Dose Admin Sodium Chloride (NS) 2,060 ml BOLUS OVER 2 HOURS STAT IV* 03/08/17 12:36 03/08/17 12:37 DC 03/08/17 13:17 Diltiazem HCl (Cardizem Iv) 10 mg ONCE ONCE IV 03/08/17 14:00 03/08/17 14:01 DC Diltiazem HCl 25 mg 25 mg STK-MED ONCE .ROUTE 03/08/17 13:44 03/08/17 13:45 DC Potassium Chloride (KCl 40 MEQ/250 ML NS) 250 ml @ 62.5 mls/hr ONCE ONCE IVPB 03/08/17 14:00 03/08/17 17:59 Ondansetron HCl (Zofran Inj) 4 mg ER BRIDGE PRN IV NAUSEA AND/OR VOMITING 03/08/17 14:30 03/09/17 14:29 Acetaminophen (Tylenol Tab) 650 mg ER BRIDGE PRN PO MILD PAIN/FEVER 03/08/17 14:30 03/09/17 14:29 Diltiazem HCl (Cardizem Iv) 15 mg ONCE ONCE IV 03/08/17 14:30 03/08/17 14:31 DC Aspirin (Aspirin) 325 mg ONCE ONCE PO 03/08/17 15:00 03/08/17 15:01 Procedures/MDM EKG: Rate/Rhythm: Atrial fibrillation QRS, ST, T-waves: [No changes consistent w/ acute ischemia] Impression: A. fib with RVR Chest X-ray 1V Interpreted by me: Soft Tissue: No acute abnormalities Bones: No acute abnormalities Mediastinum/Cardiac Silhouette/Lungs: [No acute abnormalities] This 71-year-old male presents to the ER for evaluation of generalized weakness. On my examination the patient had a blood pressure of 89 over 54. The patient was tachycardic and was in A. fib with RVR. I have looked up this patient's previous medical records and I see no previous history of A. fib. This patient has a negative troponin at this time, he was given greater than 30 cc/kg of IV normal saline and his blood pressure is 101/63. This patient was given 10 mg of Cardizem for heart rate of 163 bpm. His heart rate dropped down to 130 bpm, he was given additional 10 mg of Cardizem. His blood pressure remained stable at this time at 101/70. Lab work does reveal a potassium of 3. He was given 40 mg of potassium IV and 1 g of magnesium IV. Given his age and new onset A. fib with RVR this patient will be placed in for admission at this time on the telemetry floor under the care of Dr. Fowler. Critical Care: Excluding all billable procedures Time: 46 minutes Treatments/Evaluations: Close monitoring and treatment of unstable vital signs, cardiorespiratory, and neurologic status, while maintaining tight balance of fluid, respiratory, and cardiac interventions. Departure Diagnosis: Primary Impression: Atrial fibrillation with RVR Additional Impressions: Hypotension Hypokalemia Penile cancer Condition: Stable XIOMY RAMSEY DO Mar 08, 2017 14:40
[2017-03-08] MEDS ORDERED: ASPIRIN 325 MG TAB PO ONE (15:00)
[2017-03-08] MEDS ORDERED: MAGNESIUM SULFATE 1 GM/D5W 100 ML IVPB ONE (15:00)
[2017-03-08] MEDS ORDERED: SOD CHLORIDE 0.9% 1,000 ML IV SCH (15:09)
[2017-03-08] MEDS ORDERED: LORAZEPAM 0.5 MG TAB PO PRN (15:30)
[2017-03-08] MEDS ORDERED: NACL 0.9% 3 ML SYG IV SCH (15:30)
[2017-03-08] MEDS ORDERED: morphine 2 MG INJ IV PRN (15:30)
--- NOTE | 2017-03-08 15:31 | HP ---
Date/Time of Note Date/Time of Note DATE: 03/08/17 TIME: 15:26 Assessment/Plan VTE Prophylaxis VTE Prophylaxis Intervention: LMWH Assessment/Plan Chief Complaint/Hosp Course Patient is a 71-year-old male with a past medical history of penile carcinoma who presents with A. fib with RVR Assessment and plan Atrial fibrillation with RVR Hypertension, mild Hypokalemia, moderate to severe Electronic derangement Thrombocytopenia, chronic Anemia, likely chronic, mild Elevated lactic acid, likely secondary to penile carcinoma Penile carcinoma Weakness --Cardiology has been consulted, patient is currently rate controlled, restart patient's metoprolol at a low rate, as patient's blood pressure is labile. -Continue fluids, patient is responding well -Cardiology recommendations appreciated -Suprapubic catheter clean dry and intact, to follow with Dr. Walters in the outpatient setting or another urologist of patient's choosing -Likely cause of his electrolyte imbalance with volume depletion, continue electrolyte repletion as well as fluids -Pain medication as needed -Trend lactic acid, however it is likely it is secondary to patient's penile carcinoma, will monitor -Repeat UA does not show signs of infection Problems: HPI/ROS Admit Date/Time Admit Date/Time Hx of Present Illness Patient is a 71-year-old male with a past medical history of penile cancer with oncologist at [facility] who presents 1 day after discharge. Patient was previously admitted for inability to urinate, neurology was consulted during the previous admission who placed a suprapubic catheter. This admission is not related to the previous as patient's only brought in the patient for weakness and low blood pressure as well as palpitations. Patient was found to be in atrial fibrillation with RVR by the ED physician that responded well to diltiazem push. It appears patient also has a past medical history of hypertension on beta-hannah. Patient's daughter states that he has no known heart problems. Currently patient is rate controlled and has no other issues except feeling weak. Patient denies any chest pain, shortness of breath, nausea , vomiting, does state he does feel occasional palpitations PMH: Hypertension, penile cancer, urostomy, diabetes mellitus, PSH: Urostomy placement last admission 1 day ago Social: Denies smoking, drinking, drugs Meds: Glipizide, docusate, metoprolol, [place], aspirin, filgrastim injections at home PMH/Family/Social Social History Smoking Status: Never smoker Exam/Review of Systems Vital Signs Vitals Vital Signs Date Time Temp Pulse Resp B/P Pulse Ox O2 Delivery O2 Flow Rate FiO2 03/08/17 14:35 97.8 122 18 97/62 100 Room Air Exam Exam Physical exam General: Patient is laying in bed and answers questions appropriately Mentation: Patient is alert and oriented 4, Head: Normocephalic atraumatic Eyes: EOMI, pupils reactive to light Neck: Supple, nontender, midline Respiratory: Clear to auscultation bilaterally Cardiovascular: regular rate, no obvious murmurs Gastrointestinal: non-tender to palpation, bowel sounds heard. : suprapubic catheter placed. CDI Neurological: Moves all extremities spontaneously Skin: No new skin lesions Labs Result Diagram: 03/08/17 1300 03/08/17 1300 Medications Medications Current Medications Potassium Chloride 250 ml @ 62.5 mls/hr ONCE ONCE IVPB ; Start 03/08/17 at 14 :00; Stop 03/08/17 at 17:59 Magnesium Sulfate/ Dextrose (Magnesium Sulfate 1 Gm/D5W) 100 ml @ 100 mls/hr ONCE ONCE IVPB Last administered on 03/08/17t 15:09; Admin Dose 100 MLS/HR; Start 03/08/17 at 15:00; Stop 03/08/17 at 15:59 Aspirin (Halfprin) 81 mg DAILY PO ; Start 03/09/17 at 09:00; Status UNV Metoprolol Tartrate 25 mg 25 mg BID PO ; Start 03/08/17 at 21:00 Sodium Chloride (NS) 1,000 ml @ 50 mls/hr Q20H IV ; Start 03/08/17 at 15:09; Status UNV Lorazepam (Ativan) 0.5 mg Q8H PRN PO ANXIETY; Start 03/08/17 at 15:30; Status UNV Ondansetron HCl (Zofran Inj) 4 mg Q6H PRN IV NAUSEA AND/OR VOMITING; Start at 15:30; Status UNV Aspirin (Aspirin) 81 mg DAILY PO ; Start 03/09/17 at 09:00; Status UNV Acetaminophen (Tylenol Tab) 650 mg Q6H PRN PO PAIN LEVEL 1-3 OR FEVER; Start 03/08/17 at 15:30; Status UNV Morphine Sulfate (morphine) 2 mg Q4H PRN IV PAIN LEVEL 7-10; Start 03/08/17 at 15:30; Status UNV Bisacodyl (Dulcolax) 5 mg DAILY PRN PO CONSTIPATION; Start 03/08/17 at 15:30; Status UNV Pantoprazole (Protonix Iv) 40 mg DAILY@06 IV ; Start 03/09/17 at 06:00; Status UNV Enoxaparin Sodium (Lovenox) 40 mg DAILY SC ; Start 03/09/17 at 09:00; Status UNV REBECA MUNGUIA Mar 08, 2017 15:31
[2017-03-08] MEDS ORDERED: GLUCOSE GEL 15 GRAM TUBE PO PRN ×2 (16:00)
[2017-03-08] MEDS ORDERED: GLUCOSE GEL 15 GRAM TUBE BUCCAL PRN (16:00)
[2017-03-08] MEDS ORDERED: DEXTROSE 50% 50 ML SYRINGE IV PRN ×2 (16:00)
[2017-03-08] MEDS ORDERED: GLUCAGON 1 MG INJ IM PRN (16:00)
[2017-03-08] MEDS ORDERED: POTASSIUM CHLORIDE 20 MEQ POWDER FOR ORAL SOLN PO ONE (16:00)
[2017-03-08 17:00] VITALS: TEMP 98.3
[2017-03-08] MEDS ORDERED: ENOXAPARIN 40 MG/0.4 ML SYG SC SCH (17:00)
[2017-03-08] MEDS: INSULIN ASPART [NOVOLOG] 3 ML PEN SC SCH ×2 (18:00→21:00)
[2017-03-08 20:20] VITALS: Ht 170.2 cm; Wt 66.5 kg
[2017-03-08] MEDS: METOPROLOL 25 MG TAB PO SCH (21:00)
[2017-03-08] MEDS ORDERED: METOPROLOL 25 MG TAB PO SCH (21:00)
[2017-03-08 21:08] VITALS: PULSE 90
[2017-03-08] MEDS ORDERED: SOD CHLORIDE 0.9% 500 ML IV ONE (22:30)
[2017-03-09] VITALS (15 sets, daily range): BP systolic 100–123; BP diastolic 63–73; PULSE 72–165; RESP 16–19
[2017-03-09] MEDS: ACCU-CHEK XX SCH (02:19)
[2017-03-09] MEDS: PANTOPRAZOLE 40 MG INJ IV SCH (05:51)
[2017-03-09] MEDS: INSULIN ASPART [NOVOLOG] 3 ML PEN SC SCH ×4 (08:00→21:00)
[2017-03-09] MEDS ORDERED: ASPIRIN (EC) 81 MG TAB PO SCH (09:00)
[2017-03-09] MEDS ORDERED: POTASSIUM CHLORIDE 20 MEQ POWDER FOR ORAL SOLN PO ONE (09:30)
[2017-03-09] MEDS: METOPROLOL 25 MG TAB PO SCH ×2 (09:50→21:16)
[2017-03-09] MEDS: SOD CHLORIDE 0.45% 1,000 ML IV SCH (09:51)
[2017-03-09] MEDS: ASPIRIN 81 MG TAB PO SCH (10:04)
--- NOTE | 2017-03-09 12:26 | PN ---
Date/Time of Note Date/Time of Note DATE: 03/09/17 TIME: 12:23 Assessment/Plan VTE Prophylaxis VTE Prophylaxis Intervention: SCD's Lines/Catheters IV Catheter Type (from Nrs): Peripheral IV Urinary Cath still in place: Yes (Suprapubic Catheter insitu on admission) Reason Cath still needed: urinary retention Assessment/Plan Chief Complaint/Hosp Course Patient is a 71-year-old male with a past medical history of penile carcinoma who presents with A. fib with RVR Assessment and plan Atrial fibrillation with RVR Hypertension, mild anemia, no signs of bleeding Hypokalemia, moderate to severe Electronic derangement Thrombocytopenia, chronic Anemia, likely chronic, mild Elevated lactic acid, likely secondary to penile carcinoma Penile carcinoma Weakness --Cardiology has been consulted, patient is currently rate controlled, restart patient's metoprolol at a low rate, as patient's blood pressure is labile. -Continue fluids, patient is responding well, lactic acid cleared, no overt signs of infection -Cardiology recommendations appreciated -Suprapubic catheter clean dry and intact, to follow with Dr. Walters in the outpatient setting or another urologist of patient's choosing -cause of his electrolyte imbalance was partially responsible by volume depletion, continue electrolyte repletion as well as fluids -Pain medication as needed -anemia, but no signs of bleed, anemia workup pending -low platelets, HIT ab sent, but likely 2/2 chronic issues as patient's platelets were low during previous visit. -Repeat UA does not show signs of infection Problems: Subjective 24 Hr Interval Summary Free Text/Dictation no acute complaints Exam/Review of Systems Vital Signs Vitals Vital Signs Date Time Temp Pulse Resp B/P Pulse Ox O2 Delivery O2 Flow Rate FiO2 03/09/17 12:14 78 03/09/17 11:41 98.1 17 116/64 97 03/08/17 17:00 Room Air Intake and Output 03/08/17 03/08/17 03/09/17 15:00 23:00 07:00 Intake Total 700 ml Output Total 750 ml Balance -50 ml Exam Physical exam General: Patient is laying in bed and answers questions appropriately Mentation: Patient is alert and oriented 4, Head: Normocephalic atraumatic Eyes: EOMI, pupils reactive to light Neck: Supple, nontender, midline Respiratory: Clear to auscultation bilaterally Cardiovascular: regular rate, no obvious murmurs Gastrointestinal: non-tender to palpation, bowel sounds heard. : suprapubic catheter placed. CDI Neurological: Moves all extremities spontaneously Skin: No new skin lesions Results Result Diagram: 03/09/17 0539 03/09/17 0539 Results 24 hrs Laboratory Tests Test 03/08/17 13:00 03/08/17 14:20 03/08/17 18:03 03/08/17 18:41 White Blood Count 6.6 # Red Blood Count 3.88 L Hemoglobin 13.3 L Hematocrit 39.0 L Mean Corpuscular Volume 100.5 Mean Corpuscular Hemoglobin 34.3 H Mean Corpuscular Hemoglobin Concent 34.1 Red Cell Distribution Width 13.3 Platelet Count 129 L Mean Platelet Volume 12.5 H Neutrophils % Segmented Neutrophils % (Manual) 64 Band Neutrophils % (Manual) 6 H Lymphocytes % Lymphocytes % (Manual) 26 Monocytes % Monocytes % (Manual) 2 Eosinophils % Eosinophils % (Manual) 1 Basophils % Basophils % (Manual) 1 Nucleated Red Blood Cells % 0.0 Neutrophils # Neutrophils # (Manual) 4.2 Band Neutrophils # 0.3 Absolute Lymphocytes (Manual) 1.7 Lymphocytes # Monocytes # Absolute Monocytes (Manual) 0.1 L Eosinophils # Basophils # Basophils # (Manual) 0.0 Nucleated Red Blood Cells # Platelet Estimate DECREASED Polychromasia 1+ Anisocytosis 1+ Prothrombin Time 12.1 L Prothrombin Time Ratio 0.9 INR International Normalized Ratio 0.90 Activated Partial Thromboplast Time 28.2 Sodium Level 138 Potassium Level 3.0 L Chloride Level 101 Carbon Dioxide Level 25 Anion Gap 15 Blood Urea Nitrogen 21 H Creatinine 1.18 Glucose Level 209 Lactic Acid Level 2.8 *H Calcium Level 8.4 Total Bilirubin 0.6 Direct Bilirubin 0.00 Indirect Bilirubin 0.6 Aspartate Amino Transf (AST/SGOT) 30 Alanine Aminotransferase (ALT/SGPT) 47 Alkaline Phosphatase 69 Troponin I < 0.012 Total Protein 6.6 Albumin 3.9 Globulin 2.70 Albumin/Globulin Ratio 1.44 Urine Color YELLOW Urine Clarity CLEAR Urine pH 6.0 Urine Specific [place] 1.012 Urine Ketones NEGATIVE Urine Nitrite NEGATIVE Urine Bilirubin NEGATIVE Urine Urobilinogen 1+ H Urine Leukocyte Esterase NEGATIVE Urine Microscopic RBC 31 H Urine Microscopic WBC 3 Urine Hemoglobin 2+ H Urine Glucose 1+ H Urine Total Protein 1+ H Bedside Glucose 67 L 101 Test 03/08/17 19:00 03/08/17 20:15 03/08/17 22:00 03/09/17 05:39 Lactic Acid Level 3.2 *H 2.2 *H 1.5 Bedside Glucose 118 White Blood Count 4.7 #L Red Blood Count 2.98 #L Hemoglobin 9.9 #L Hematocrit 30.6 #L Mean Corpuscular Volume 102.7 H Mean Corpuscular Hemoglobin 33.2 H Mean Corpuscular Hemoglobin Concent 32.4 Red Cell Distribution Width 13.6 Platelet Count 103 #L Mean Platelet Volume 11.9 H Neutrophils % Segmented Neutrophils % (Manual) 39 Band Neutrophils % (Manual) 8 H Lymphocytes % Lymphocytes % (Manual) 47 Monocytes % Monocytes % (Manual) 4 Eosinophils % Basophils % Basophils % (Manual) 2 Nucleated Red Blood Cells % 0.0 Neutrophils # Neutrophils # (Manual) 1.8 Band Neutrophils # 0.3 Absolute Lymphocytes (Manual) 2.2 Lymphocytes # Monocytes # Absolute Monocytes (Manual) 0.1 L Eosinophils # Basophils # Basophils # (Manual) 0.0 Nucleated Red Blood Cells # Platelet Estimate DECREASED Giant Platelets 3 H Polychromasia 1+ Sodium Level 141 Potassium Level 3.6 Chloride Level 112 H Carbon Dioxide Level 22 Anion Gap 11 Blood Urea Nitrogen 13 Creatinine 0.98 Glucose Level 114 # Calcium Level 7.6 L Total Bilirubin 0.2 Direct Bilirubin 0.00 Indirect Bilirubin 0.2 Aspartate Amino Transf (AST/SGOT) 24 Alanine Aminotransferase (ALT/SGPT) 44 Alkaline Phosphatase 63 Total Protein 5.3 #L Albumin 2.9 #L Globulin 2.40 Albumin/Globulin Ratio 1.20 Triglycerides Level 108 Cholesterol Level 122 LDL Cholesterol, Calculated 73 HDL Cholesterol 27 L Cholesterol/HDL Ratio 4.5 Thyroid Stimulating Hormone (TSH) 0.753 Free Thyroxine 1.18 Test 03/09/17 09:30 Bedside Glucose 139 Medications Medications Current Medications Lorazepam (Ativan) 0.5 mg Q8H PRN PO ANXIETY; Start 03/08/17 at 15:30 Ondansetron HCl (Zofran Inj) 4 mg Q6H PRN IV NAUSEA AND/OR VOMITING; Start at 15:30 Aspirin (Aspirin) 81 mg DAILY PO Last administered on 03/09/17t 10:04; Admin Dose 81 MG; Start 03/09/17 at 09:00 Acetaminophen (Tylenol Tab) 650 mg Q6H PRN PO PAIN LEVEL 1-3 OR FEVER; Start 03/08/17 at 15:30 Morphine Sulfate (morphine) 2 mg Q4H PRN IV PAIN LEVEL 7-10; Start 03/08/17 at 15:30 Bisacodyl (Dulcolax) 5 mg DAILY PRN PO CONSTIPATION; Start 03/08/17 at 15:30 Pantoprazole (Protonix Iv) 40 mg DAILY@06 IV Last administered on 03/09/17 05 :51; Admin Dose 40 MG; Start 03/09/17 at 06:00 Diagnostic Test (Pha) (Accu-Chek) 1 ea 02 XX Last administered on 03/09/17 02 :19; Admin Dose 1 EA; Start 03/09/17 at 02:00 Metoprolol Tartrate (Lopressor) 12.5 mg BID PO Last administered on 03/09/17 09:50; Admin Dose 12.5 MG; Start 03/08/17 at 21:00 Miscellaneous Information 1 ea NOTE XX ; Start 03/08/17 at 16:00 Glucose (Glutose) 15 gm Q15M PRN PO DECREASED GLUCOSE; Start 03/08/17 at 16:00 Glucose (Glutose) 22.5 gm Q15M PRN PO DECREASED GLUCOSE; Start 03/08/17 at 16: 00 Dextrose (D50w Syringe) 25 ml Q15M PRN IV DECREASED GLUCOSE; Start 03/08/17 at 16:00 Dextrose (D50w Syringe) 50 ml Q15M PRN IV DECREASED GLUCOSE; Start 03/08/17 at 16:00 Glucagon (Glucagen) 1 mg Q15M PRN IM DECREASED GLUCOSE; Start 03/08/17 at 16: 00 Glucose 15 gm 15 gm Q15M PRN BUCCAL DECREASED GLUCOSE; Start 03/08/17 at 16:00 Sodium Chloride (1/2 NS) 1,000 ml @ 50 mls/hr Q20H IV Last administered on 09:51; Admin Dose 50 MLS/HR; Start 03/09/17 at 09:30 REBECA MUNGUIA Mar 09, 2017 12:26
--- NOTE | 2017-03-09 16:12 | RADRPT ---
Echocardiogram Report Patient Name: RENAE MATA Gender: Male Date: 1945 Study Date: 09-Mar-2017 [employer] Coordinator: AUGUSTINE Location: E Ref. Physician: REBECA MUNGUIA Quality: Adequate Procedures: Transthoracic echocardiogram with complete 2D, M-Mode, and Doppler examination. Indications: Atrial Fibrillation. 2D/M Mode Doppler Measurement Value Normal Ranges Measurement Value Normal Ranges AoR Diam MM 3.5 cm AV Peak Ayan 1.1 m/sec ACS MM 2.3 cm AV Peak PG 4.5 mmHg LVIDd 2D 4.0 3.5 - 5.6 cm LVOT Peak Ayan 0.9 m/sec LVIDs 2D 2.8 2.1 - 4.1 cm LVOT Peak PG 3.1 mmHg LVPWd 2D 0.8 0.6 - 1.1 cm MV E Peak Ayan 0.7 m/sec IVSd 2D 1.0 0.6 - 1.1 cm MV A Peak Ayan 0.8 m/sec EDV 2D 70.2 cm3 MV E/A 0.9 ESV 2D 22.2 cm3 MV Decel Time 210 msec LA Dimen 2D 3.0 2.3 - 4.0 cm MV Decel [place] 3 MV E/A 0.9 PV Peak Ayan 0.9 m/sec PV Peak PG 4.0 mmHg Findings Left Ventricle: Normal left ventricular systolic function. Normal left ventricular cavity size. Normal left ventricular wall thickness. Ejection fraction is visually estimated at 5560 %. Tissue Doppler/Mitral Doppler indices are within normal limits. E/E`=6. Right Ventricle: Normal right ventricular size. Normal right ventricular systolic function. Left Atrium: The left atrium is normal in size. Right Atrium: The right atrium is normal in size. Atrial Septum: Normal atrial septum. Mitral Valve: Normal appearance and function of the mitral valve with trace physiologic regurgitation. Aortic Valve: Normal appearance of the aortic valve. No significant aortic stenosis or insufficiency. Tricuspid Valve: Normal appearance and function of the tricuspid valve with trace physiologic regurgitation. Unable to obtain RVSP due to minimal presence of tricuspid regurgitation. Pulmonic Valve: Normal pulmonic valve appearance. There is trace pulmonic regurgitation. Pericardium: Normal pericardium with no significant pericardial effusion. Aorta: Normal aortic root. IVC: Normal size and normal respiratory collapse consistent with normal right atrial pressure. Pulmonary Artery: Normal pulmonary artery size. Conclusions 1.The left ventricle is normal in size and systolic function. 2.Estimated left ventricular ejection fraction of 55-60%. Electronically Signed By: Abelardo Brady 09-Mar-2017 16:11:47 -0700 Patient Name: RENAE MATA Study Date: 09-Mar-2017 [id number]
--- NOTE | 2017-03-09 16:12 | RADRPT ---
Echocardiogram Report Patient Name: RENAE MATA Gender: Male Date: 1945 Study Date: 09-Mar-2017 Cpc Coder: AUGUSTINE Location: E Ref. Physician: REBECA MUNGUIA Quality: Adequate Procedures: Transthoracic echocardiogram with complete 2D, M-Mode, and Doppler examination. Indications: Atrial Fibrillation. 2D/M Mode Doppler Measurement Value Normal Ranges Measurement Value Normal Ranges AoR Diam MM 3.5 cm AV Peak Ayan 1.1 m/sec ACS MM 2.3 cm AV Peak PG 4.5 mmHg LVIDd 2D 4.0 3.5 - 5.6 cm LVOT Peak Ayan 0.9 m/sec LVIDs 2D 2.8 2.1 - 4.1 cm LVOT Peak PG 3.1 mmHg LVPWd 2D 0.8 0.6 - 1.1 cm MV E Peak Ayan 0.7 m/sec IVSd 2D 1.0 0.6 - 1.1 cm MV A Peak Ayan 0.8 m/sec EDV 2D 70.2 cm3 MV E/A 0.9 ESV 2D 22.2 cm3 MV Decel Time 210 msec LA Dimen 2D 3.0 2.3 - 4.0 cm MV Decel [place] 3 MV E/A 0.9 PV Peak Ayan 0.9 m/sec PV Peak PG 4.0 mmHg Findings Left Ventricle: Normal left ventricular systolic function. Normal left ventricular cavity size. Normal left ventricular wall thickness. Ejection fraction is visually estimated at 5560 %. Tissue Doppler/Mitral Doppler indices are within normal limits. E/E`=6. Right Ventricle: Normal right ventricular size. Normal right ventricular systolic function. Left Atrium: The left atrium is normal in size. Right Atrium: The right atrium is normal in size. Atrial Septum: Normal atrial septum. Mitral Valve: Normal appearance and function of the mitral valve with trace physiologic regurgitation. Aortic Valve: Normal appearance of the aortic valve. No significant aortic stenosis or insufficiency. Tricuspid Valve: Normal appearance and function of the tricuspid valve with trace physiologic regurgitation. Unable to obtain RVSP due to minimal presence of tricuspid regurgitation. Pulmonic Valve: Normal pulmonic valve appearance. There is trace pulmonic regurgitation. Pericardium: Normal pericardium with no significant pericardial effusion. Aorta: Normal aortic root. IVC: Normal size and normal respiratory collapse consistent with normal right atrial pressure. Pulmonary Artery: Normal pulmonary artery size. Conclusions 1.The left ventricle is normal in size and systolic function. 2.Estimated left ventricular ejection fraction of 55-60%. Electronically Signed By: Abelardo Brady 09-Mar-2017 16:11:47 -0700 Patient Name: RENAE MATA Study Date: 09-Mar-2017 [id number]
--- NOTE | 2017-03-09 17:00 | CONS ---
Date/Time of Note Date/Time of Note DATE: 03/09/17 TIME: 16:49 Assessment/Plan Assessment/Plan Chief Complaint/Hosp Course Assessment: Paroxysmal atrial fibrillation - new diagnosis, now reverted to sinus rhythm Hypertension Diabetes mellitus Penile cancer Urinary retention - suprapubic catheter in place Anemia Recommendations: -normal echocardiogram with LVEF 55-60% -CHADS2 score is 2, but will defer starting anticoagulation at this time given anemia and ongoing therapy for penile cancer - needs to be re-addressed as outpatient -aspirin 81mg daily -metoprolol 25mg BID Problems: Consultation Date/Type/Reason Admit Date/Time Type of Consultation: Cardiology Reason for Consultation atrial fibrillation with rapid ventricular response Hx of Present Illness The patient is a 71 year-old male who presented with generalized weakness and palpitations. He was noted to be in atrial fibrillation with a rapid ventricular response, which appears to be a new diagnosis for him. He received intravenous diltiazem with control of his ventricular rates, and has subsequently reverted back to normal sinus rhythm. He has no prior history of cardiac disease. He has penile cancer and was recently hospitalized here at [facility] 03/05/2017 to 03/06/2017 for urinary retention, and is status post suprapubic catheter placement. 14 point review of systems negative other than per HPI. Past Medical History Hypertension Diabetes mellitus Penile cancer Family History Significant Family History: no pertinent family hx Social History Alcohol Use: none Smoking Status: Never smoker Drug Use: none Exam/Review of Systems Vital Signs Vitals Vital Signs Date Time Temp Pulse Resp B/P Pulse Ox O2 Delivery O2 Flow Rate FiO2 03/09/17 16:06 83 03/09/17 15:56 98.6 18 100/64 100 03/08/17 17:00 Room Air Intake and Output 03/08/17 03/08/17 03/09/17 15:00 23:00 07:00 Intake Total 700 ml Output Total 750 ml Balance -50 ml Exam Constitutional: alert, well developed Psych: nl mood/affect, no complaints Head: atraumatic, normocephalic Eyes: nl conjunctiva, nl lids ENMT: nl external ears & nose, nl nasal mucosa & septum Neck: non-tender, supple, No jvd Respiratory: clear to auscultation, normal air movement Cardiovascular: regular rate and rhythm, No murmurs/extra sounds Gastrointestinal: non-tender, soft Musculoskeletal: nl extremities to inspection Extremities: No clubbing, No cyanosis, No edema Neurological: nl mental status, nl speech Skin: nl turgor Results Result Diagram: 03/09/17 0539 03/09/17 0539 Results 24 hrs Laboratory Tests Test 03/08/17 18:03 03/08/17 18:41 03/08/17 19:00 03/08/17 20:15 Bedside Glucose 67 L 101 Lactic Acid Level 3.2 *H 2.2 *H Test 03/08/17 22:00 03/09/17 05:39 03/09/17 09:30 03/09/17 12:29 Bedside Glucose 118 139 132 White Blood Count 4.7 #L Red Blood Count 2.98 #L Hemoglobin 9.9 #L Hematocrit 30.6 #L Mean Corpuscular Volume 102.7 H Mean Corpuscular Hemoglobin 33.2 H Mean Corpuscular Hemoglobin Concent 32.4 Red Cell Distribution Width 13.6 Platelet Count 103 #L Mean Platelet Volume 11.9 H Neutrophils % Segmented Neutrophils % (Manual) 39 Band Neutrophils % (Manual) 8 H Lymphocytes % Lymphocytes % (Manual) 47 Monocytes % Monocytes % (Manual) 4 Eosinophils % Basophils % Basophils % (Manual) 2 Nucleated Red Blood Cells % 0.0 Neutrophils # Neutrophils # (Manual) 1.8 Band Neutrophils # 0.3 Absolute Lymphocytes (Manual) 2.2 Lymphocytes # Monocytes # Absolute Monocytes (Manual) 0.1 L Eosinophils # Basophils # Basophils # (Manual) 0.0 Nucleated Red Blood Cells # Platelet Estimate DECREASED Giant Platelets 3 H Polychromasia 1+ Sodium Level 141 Potassium Level 3.6 Chloride Level 112 H Carbon Dioxide Level 22 Anion Gap 11 Blood Urea Nitrogen 13 Creatinine 0.98 Glucose Level 114 # Lactic Acid Level 1.5 Calcium Level 7.6 L Total Bilirubin 0.2 Direct Bilirubin 0.00 Indirect Bilirubin 0.2 Aspartate Amino Transf (AST/SGOT) 24 Alanine Aminotransferase (ALT/SGPT) 44 Alkaline Phosphatase 63 Total Protein 5.3 #L Albumin 2.9 #L Globulin 2.40 Albumin/Globulin Ratio 1.20 Triglycerides Level 108 Cholesterol Level 122 LDL Cholesterol, Calculated 73 HDL Cholesterol 27 L Cholesterol/HDL Ratio 4.5 Thyroid Stimulating Hormone (TSH) 0.753 Free Thyroxine 1.18 Medications Medications Current Medications Lorazepam (Ativan) 0.5 mg Q8H PRN PO ANXIETY; Start 03/08/17 at 15:30 Ondansetron HCl (Zofran Inj) 4 mg Q6H PRN IV NAUSEA AND/OR VOMITING; Start at 15:30 Aspirin (Aspirin) 81 mg DAILY PO Last administered on 03/09/17 10:04; Admin Dose 81 MG; Start 03/09/17 at 09:00 Acetaminophen (Tylenol Tab) 650 mg Q6H PRN PO PAIN LEVEL 1-3 OR FEVER; Start 03/08/17 at 15:30 Morphine Sulfate (morphine) 2 mg Q4H PRN IV PAIN LEVEL 7-10; Start 03/08/17 at 15:30 Bisacodyl (Dulcolax) 5 mg DAILY PRN PO CONSTIPATION; Start 03/08/17 at 15:30 Pantoprazole (Protonix Iv) 40 mg DAILY@06 IV Last administered on 03/09/17 05 :51; Admin Dose 40 MG; Start 03/09/17 at 06:00 Diagnostic Test (Pha) (Accu-Chek) 1 ea 02 XX Last administered on 03/09/17 02 :19; Admin Dose 1 EA; Start 03/09/17 at 02:00 Metoprolol Tartrate (Lopressor) 12.5 mg BID PO Last administered on 03/09/17 09:50; Admin Dose 12.5 MG; Start 03/08/17 at 21:00 Miscellaneous Information 1 ea NOTE XX ; Start 03/08/17 at 16:00 Glucose (Glutose) 15 gm Q15M PRN PO DECREASED GLUCOSE; Start 03/08/17 at 16:00 Glucose (Glutose) 22.5 gm Q15M PRN PO DECREASED GLUCOSE; Start 03/08/17 at 16: 00 Dextrose (D50w Syringe) 25 ml Q15M PRN IV DECREASED GLUCOSE; Start 03/08/17 at 16:00 Dextrose (D50w Syringe) 50 ml Q15M PRN IV DECREASED GLUCOSE; Start 03/08/17 at 16:00 Glucagon (Glucagen) 1 mg Q15M PRN IM DECREASED GLUCOSE; Start 03/08/17 at 16: 00 Glucose 15 gm 15 gm Q15M PRN BUCCAL DECREASED GLUCOSE; Start 03/08/17 at 16:00 Sodium Chloride (1/2 NS) 1,000 ml @ 50 mls/hr Q20H IV Last administered on 09:51; Admin Dose 50 MLS/HR; Start 03/09/17 at 09:30 AMIRAH KELLEY MD Mar 09, 2017 17:00
[2017-03-10] VITALS (13 sets, daily range): BP systolic 102–125; BP diastolic 59–72; PULSE 70–158; RESP 16–18
[2017-03-10] MEDS: ACCU-CHEK XX SCH (02:00)
[2017-03-10] MEDS: PANTOPRAZOLE 40 MG INJ IV SCH (05:36)
[2017-03-10] MEDS: SOD CHLORIDE 0.45% 1,000 ML IV SCH (05:36)
[2017-03-10] MEDS: INSULIN ASPART [NOVOLOG] 3 ML PEN SC SCH ×4 (08:00→20:39)
[2017-03-10] MEDS: METOPROLOL 25 MG TAB PO SCH ×2 (09:00→20:40)
[2017-03-10] MEDS: ASPIRIN 81 MG TAB PO SCH (09:26)
[2017-03-10] MEDS ORDERED: MAGNESIUM SULFATE 2 GM/50 ML 50 ML IVPB ONE (10:00)
--- NOTE | 2017-03-10 13:04 | PN ---
Date/Time of Note Date/Time of Note DATE: 03/10/17 TIME: 12:59 Assessment/Plan VTE Prophylaxis VTE Prophylaxis Intervention: SCD's Lines/Catheters IV Catheter Type (from Nrsg): Peripheral IV Urinary Cath still in place: Yes (SUPRA PUBIC CATH) Reason Cath still needed: urinary retention Assessment/Plan Chief Complaint/Hosp Course Patient is a 71-year-old male with a past medical history of penile carcinoma who presents with A. fib with RVR Assessment and plan Atrial fibrillation with RVR Hypertension, mild anemia, no signs of bleeding Hypokalemia, moderate to severe Electronic derangement Thrombocytopenia, chronic Anemia, likely chronic, mild Elevated lactic acid, likely secondary to penile carcinoma Penile carcinoma Weakness --Cardiology has been consulted, patient is currently rate controlled, restart patient's metoprolol at a low dose. tachycardic overnight -Continue fluids, patient is responding well, lactic acid cleared, no overt signs of infection -Cardiology recommendations appreciated -Suprapubic catheter clean dry and intact, to follow with Dr. Walters in the outpatient setting or another urologist of patient's choosing -cause of his electrolyte imbalance was partially responsible by volume depletion, continue electrolyte repletion as well as fluids -Pain medication as needed -anemia, but no signs of bleed, anemia workup pending -low platelets, HIT ab sent, but likely 2/2 chronic issues as patient's platelets were low during previous visit. -Repeat UA does not show signs of infection DISPO: observe overnight as patient had episode of RVR, DC if stable tomorrow to f/u with patient's own heme/onc and Dr. Walters for suprapubic cath management ( or another urologist of patient's choosing) Problems: Subjective 24 Hr Interval Summary Free Text/Dictation no acute changes, but episode of tachycardia in the 160's overnight. Exam/Review of Systems Vital Signs Vitals Vital Signs Date Time Temp Pulse Resp B/P Pulse Ox O2 Delivery O2 Flow Rate FiO2 03/10/17 12:47 78 03/10/17 11:55 98.5 18 110/68 100 03/08/17 17:00 Room Air Intake and Output 03/09/17 03/09/17 03/10/17 15:00 23:00 07:00 Intake Total 200 ml 300 ml Output Total 1200 ml 3000 ml Balance -1000 ml -2700 ml Exam Physical exam General: Patient is laying in bed and answers questions appropriately Mentation: Patient is alert and oriented 4, Head: Normocephalic atraumatic Eyes: EOMI, pupils reactive to light Neck: Supple, nontender, midline Respiratory: Clear to auscultation bilaterally Cardiovascular: regular rate, no obvious murmurs Gastrointestinal: non-tender to palpation, bowel sounds heard. : suprapubic catheter placed. CDI Neurological: Moves all extremities spontaneously Skin: No new skin lesions Results Result Diagram: 03/10/17 0540 03/10/17 0540 Results 24 hrs Laboratory Tests Test 03/09/17 17:07 03/09/17 21:14 03/10/17 05:40 03/10/17 09:10 Bedside Glucose 135 114 163 White Blood Count 3.3 #L Red Blood Count 3.13 L Hemoglobin 10.5 L Hematocrit 31.5 L Mean Corpuscular Volume 100.6 Mean Corpuscular Hemoglobin 33.5 H Mean Corpuscular Hemoglobin Concent 33.3 Red Cell Distribution Width 13.2 Platelet Count 113 L Mean Platelet Volume 11.8 H Neutrophils % Segmented Neutrophils % (Manual) 24 L Band Neutrophils % (Manual) 14 H Lymphocytes % Lymphocytes % (Manual) 50 Reactive Lymphocytes % (Manual) 2 H Monocytes % Monocytes % (Manual) 7 Eosinophils % Eosinophils % (Manual) 1 Basophils % Basophils % (Manual) 2 Nucleated Red Blood Cells % 0.0 Neutrophils # Neutrophils # (Manual) 0.8 L Band Neutrophils # 0.4 Absolute Lymphocytes (Manual) 1.6 Lymphocytes # Reactive Lymphocytes # 0.0 Monocytes # Absolute Monocytes (Manual) 0.2 L Eosinophils # Basophils # Basophils # (Manual) 0.0 Nucleated Red Blood Cells # Giant Platelets 6 H Absolute Reticulocyte Count 0.013 L Percent Reticulocyte Count 0.4 L Prothrombin Time 12.5 Prothrombin Time Ratio 1.0 INR International Normalized Ratio 0.93 Sodium Level 139 Potassium Level 3.6 Chloride Level 109 Carbon Dioxide Level 24 Anion Gap 10 Blood Urea Nitrogen 12 Creatinine 0.88 Glucose Level 124 Calcium Level 8.2 L Phosphorus Level 2.7 Magnesium Level 1.6 L Iron Level 52 Total Iron Binding Capacity 250 Percent Iron Saturation 21 L Ferritin 213.0 Medications Medications Current Medications Lorazepam (Ativan) 0.5 mg Q8H PRN PO ANXIETY; Start 03/08/17 at 15:30 Ondansetron HCl (Zofran Inj) 4 mg Q6H PRN IV NAUSEA AND/OR VOMITING; Start at 15:30 Aspirin (Aspirin) 81 mg DAILY PO Last administered on 03/10/17 09:26; Admin Dose 81 MG; Start 03/09/17 at 09:00 Acetaminophen (Tylenol Tab) 650 mg Q6H PRN PO PAIN LEVEL 1-3 OR FEVER; Start 03/08/17 at 15:30 Morphine Sulfate (morphine) 2 mg Q4H PRN IV PAIN LEVEL 7-10; Start 03/08/17 at 15:30 Bisacodyl (Dulcolax) 5 mg DAILY PRN PO CONSTIPATION; Start 03/08/17 at 15:30 Pantoprazole (Protonix Iv) 40 mg DAILY@06 IV Last administered on 03/10/17 05 :36; Admin Dose 40 MG; Start 03/09/17 at 06:00 Diagnostic Test (Pha) (Accu-Chek) 1 ea 02 XX Last administered on 03/09/17 02 :19; Admin Dose 1 EA; Start 03/09/17 at 02:00 Miscellaneous Information 1 ea NOTE XX ; Start 03/08/17 at 16:00 Glucose (Glutose) 15 gm Q15M PRN PO DECREASED GLUCOSE; Start 03/08/17 at 16:00 Glucose (Glutose) 22.5 gm Q15M PRN PO DECREASED GLUCOSE; Start 03/08/17 at 16: 00 Dextrose (D50w Syringe) 25 ml Q15M PRN IV DECREASED GLUCOSE; Start 03/08/17 at 16:00 Dextrose (D50w Syringe) 50 ml Q15M PRN IV DECREASED GLUCOSE; Start 03/08/17 at 16:00 Glucagon (Glucagen) 1 mg Q15M PRN IM DECREASED GLUCOSE; Start 03/08/17 at 16: 00 Glucose 15 gm 15 gm Q15M PRN BUCCAL DECREASED GLUCOSE; Start 03/08/17 at 16:00 Sodium Chloride (1/2 NS) 1,000 ml @ 50 mls/hr Q20H IV Last administered on 05:36; Admin Dose 50 MLS/HR; Start 03/09/17 at 09:30 Metoprolol Tartrate (Lopressor) 25 mg BID PO Last administered on 10/28/17at 21 :16; Admin Dose 25 MG; Start 03/09/17 at 21:00 REBECA MUNGUIA Mar 10, 2017 13:04
[2017-03-10] MEDS: BISACODYL (EC) 5 MG TAB PO PRN (14:43)
--- NOTE | 2017-03-10 18:31 | CONS ---
Date/Time of Note Date/Time of Note DATE: 03/10/17 TIME: 18:29 Assessment/Plan Assessment/Plan Chief Complaint/Hosp Course Assessment: Paroxysmal atrial fibrillation - new diagnosis, now reverted to sinus rhythm Hypertension Diabetes mellitus Penile cancer Urinary retention - suprapubic catheter in place Anemia Recommendations: -normal echocardiogram with LVEF 55-60% -CHADS2 score is 2, but will defer starting anticoagulation at this time given anemia and ongoing therapy for penile cancer - needs to be re-addressed as outpatient -aspirin 81mg daily -metoprolol 25mg BID Problems: Consultation Date/Type/Reason Admit Date/Time Mar 08, 2017 at 14:14 Initial Consult Date Type of Consultation: Cardiology 24 HR Interval Summary Free Text/Dictation Had elevated ventricular rates overnight. Now back in normal sinus rhythm. Detailed Summary Additional Comments 14 point review of systems without changes. Exam/Review of Systems Vital Signs Vitals Vital Signs Date Time Temp Pulse Resp B/P Pulse Ox O2 Delivery O2 Flow Rate FiO2 03/10/17 16:04 70 03/10/17 15:56 98.0 18 106/60 99 03/08/17 17:00 Room Air Intake and Output 03/09/17 03/09/17 03/10/17 15:00 23:00 07:00 Intake Total 200 ml 300 ml Output Total 1200 ml 3000 ml Balance -1000 ml -2700 ml Exam Constitutional: alert, well developed Psych: nl mood/affect, no complaints Head: atraumatic, normocephalic Eyes: nl conjunctiva, nl lids ENMT: nl external ears & nose, nl nasal mucosa & septum Neck: non-tender, supple, No jvd Respiratory: clear to auscultation, normal air movement Cardiovascular: regular rate and rhythm, No murmurs/extra sounds Gastrointestinal: non-tender, soft Musculoskeletal: nl extremities to inspection Extremities: No clubbing, No cyanosis, No edema Neurological: nl mental status, nl speech Skin: nl turgor Results Result Diagram: 03/10/17 0540 03/10/17 0540 Results 24 hrs Laboratory Tests Test 03/09/17 21:14 03/10/17 05:40 03/10/17 09:10 03/10/17 13:00 Bedside Glucose 114 163 132 White Blood Count 3.3 #L Red Blood Count 3.13 L Hemoglobin 10.5 L Hematocrit 31.5 L Mean Corpuscular Volume 100.6 Mean Corpuscular Hemoglobin 33.5 H Mean Corpuscular Hemoglobin Concent 33.3 Red Cell Distribution Width 13.2 Platelet Count 113 L Mean Platelet Volume 11.8 H Neutrophils % Segmented Neutrophils % (Manual) 24 L Band Neutrophils % (Manual) 14 H Lymphocytes % Lymphocytes % (Manual) 50 Reactive Lymphocytes % (Manual) 2 H Monocytes % Monocytes % (Manual) 7 Eosinophils % Eosinophils % (Manual) 1 Basophils % Basophils % (Manual) 2 Nucleated Red Blood Cells % 0.0 Neutrophils # Neutrophils # (Manual) 0.8 L Band Neutrophils # 0.4 Absolute Lymphocytes (Manual) 1.6 Lymphocytes # Reactive Lymphocytes # 0.0 Monocytes # Absolute Monocytes (Manual) 0.2 L Eosinophils # Basophils # Basophils # (Manual) 0.0 Nucleated Red Blood Cells # Giant Platelets 6 H Absolute Reticulocyte Count 0.013 L Percent Reticulocyte Count 0.4 L Prothrombin Time 12.5 Prothrombin Time Ratio 1.0 INR International Normalized Ratio 0.93 Sodium Level 139 Potassium Level 3.6 Chloride Level 109 Carbon Dioxide Level 24 Anion Gap 10 Blood Urea Nitrogen 12 Creatinine 0.88 Glucose Level 124 Calcium Level 8.2 L Phosphorus Level 2.7 Magnesium Level 1.6 L Iron Level 52 Total Iron Binding Capacity 250 Percent Iron Saturation 21 L Ferritin 213.0 Test 03/10/17 17:31 Bedside Glucose 124 Medications Medications Current Medications Lorazepam (Ativan) 0.5 mg Q8H PRN PO ANXIETY; Start 03/08/17 at 15:30 Ondansetron HCl (Zofran Inj) 4 mg Q6H PRN IV NAUSEA AND/OR VOMITING; Start at 15:30 Aspirin (Aspirin) 81 mg DAILY PO Last administered on 03/10/17 09:26; Admin Dose 81 MG; Start 03/09/17 at 09:00 Acetaminophen (Tylenol Tab) 650 mg Q6H PRN PO PAIN LEVEL 1-3 OR FEVER; Start 03/08/17 at 15:30 Morphine Sulfate (morphine) 2 mg Q4H PRN IV PAIN LEVEL 7-10; Start 03/08/17 at 15:30 Bisacodyl (Dulcolax) 5 mg DAILY PRN PO CONSTIPATION Last administered on 14:43; Admin Dose 5 MG; Start 03/08/17 at 15:30 Pantoprazole (Protonix Iv) 40 mg DAILY@06 IV Last administered on 03/10/17 05 :36; Admin Dose 40 MG; Start 03/09/17 at 06:00 Diagnostic Test (Pha) (Accu-Chek) 1 ea 02 XX Last administered on 03/09/17 02 :19; Admin Dose 1 EA; Start 03/09/17 at 02:00 Miscellaneous Information 1 ea NOTE XX ; Start 03/08/17 at 16:00 Glucose (Glutose) 15 gm Q15M PRN PO DECREASED GLUCOSE; Start 03/08/17 at 16:00 Glucose (Glutose) 22.5 gm Q15M PRN PO DECREASED GLUCOSE; Start 03/08/17 at 16: 00 Dextrose (D50w Syringe) 25 ml Q15M PRN IV DECREASED GLUCOSE; Start 03/08/17 at 16:00 Dextrose (D50w Syringe) 50 ml Q15M PRN IV DECREASED GLUCOSE; Start 03/08/17 at 16:00 Glucagon (Glucagen) 1 mg Q15M PRN IM DECREASED GLUCOSE; Start 03/08/17 at 16: 00 Glucose 15 gm 15 gm Q15M PRN BUCCAL DECREASED GLUCOSE; Start 03/08/17 at 16:00 Sodium Chloride (1/2 NS) 1,000 ml @ 50 mls/hr Q20H IV Last administered on 05:36; Admin Dose 50 MLS/HR; Start 03/09/17 at 09:30 Metoprolol Tartrate (Lopressor) 25 mg BID PO Last administered on 03/09/17 21 :16; Admin Dose 25 MG; Start 03/09/17 at 21:00 AMIRAH KELLEY MD Mar 10, 2017 18:30
[2017-03-11] VITALS (12 sets, daily range): BP systolic 103–163; BP diastolic 53–64; PULSE 60–71; RESP 16–20
[2017-03-11] MEDS: ACCU-CHEK XX SCH (02:00)
[2017-03-11] MEDS: SOD CHLORIDE 0.45% 1,000 ML IV SCH ×2 (02:54→21:48)
[2017-03-11] MEDS: PANTOPRAZOLE 40 MG INJ IV SCH (06:27)
[2017-03-11] MEDS: INSULIN ASPART [NOVOLOG] 3 ML PEN SC SCH ×4 (08:00→20:43)
[2017-03-11] MEDS: ASPIRIN 81 MG TAB PO SCH (08:15)
[2017-03-11] MEDS: METOPROLOL 25 MG TAB PO SCH ×2 (08:16→20:37)
[2017-03-11] MEDS: BISACODYL (EC) 5 MG TAB PO PRN (10:55)
--- NOTE | 2017-03-11 11:11 | PN ---
Date/Time of Note Date/Time of Note DATE: 03/11/17 TIME: 11:06 Assessment/Plan VTE Prophylaxis VTE Prophylaxis Intervention: contraindicated Lines/Catheters IV Catheter Type (from Nrs): Peripheral IV Urinary Cath still in place: Yes (YES SUPRA ) Reason Cath still needed: urinary retention Assessment/Plan Assessment/Plan 1. Atrial fibrillation with RVR - Currently rate controlled and converted back to sinus - Cardiology on board and recommendations appreciated - On aspirin and metoprolol 2. Hypertension, mild - Stable 3. anemia, likely chronic - Hgb stable with no signs of bleeding 4. Hypokalemia - Stable - continue monitoring 5. Thrombocytopenia, chronic - Stable with no signs of active bleeding or petechia - HIT panel ordered 6. Penile carcinoma 7. Constipation - will give stool softeners 8. Disposition - If cleared by Cardiology, will d/c home in next 24 to 48 hours Subjective 24 Hr Interval Summary Free Text/Dictation Patient states hes feeling better and no longer experiencing palpitations. Is c /o constipation and has not had a BM in 4 days. No acute overnight events and no new complaints. Exam/Review of Systems Vital Signs Vitals Vital Signs Date Time Temp Pulse Resp B/P Pulse Ox O2 Delivery O2 Flow Rate FiO2 03/11/17 08:08 60 03/11/17 07:59 98.0 18 103/61 100 03/08/17 17:00 Room Air Intake and Output 03/10/17 03/10/17 03/11/17 15:00 23:00 07:00 Intake Total 750 ml 990 ml Output Total 2100 ml 1600 ml Balance -1350 ml -610 ml Exam General: Patient is laying in bed and answers questions appropriately. NAD Mentation: Patient is alert and oriented 4, Head: Normocephalic atraumatic Eyes: EOMI, pupils reactive to light Neck: Supple, nontender, midline Respiratory: Clear to auscultation bilaterally Cardiovascular: regular rate, no obvious murmurs Gastrointestinal: non-tender to palpation, bowel sounds heard. : suprapubic catheter placed. CDI Neurological: Moves all extremities spontaneously Results Result Diagram: 03/11/17 0652 03/11/17 0652 Results 24 hrs Laboratory Tests Test 03/10/17 13:00 03/10/17 17:31 03/10/17 20:39 03/11/17 06:52 Bedside Glucose 132 124 172 White Blood Count 3.2 L Red Blood Count 3.25 L Hemoglobin 11.2 L Hematocrit 33.2 L Mean Corpuscular Volume 102.2 H Mean Corpuscular Hemoglobin 34.5 H Mean Corpuscular Hemoglobin Concent 33.7 Red Cell Distribution Width 13.1 Platelet Count 139 #L Mean Platelet Volume 11.4 H Neutrophils % Segmented Neutrophils % (Manual) 21 L Band Neutrophils % (Manual) 7 H Lymphocytes % Lymphocytes % (Manual) 61 H Monocytes % Monocytes % (Manual) 7 Eosinophils % Eosinophils % (Manual) 2 Basophils % Basophils % (Manual) 1 Myelocytes % (Manual) 1 H Nucleated Red Blood Cells % 0.0 Neutrophils # Neutrophils # (Manual) 0.7 L Band Neutrophils # 0.2 Absolute Lymphocytes (Manual) 1.9 Lymphocytes # Monocytes # Absolute Monocytes (Manual) 0.2 L Eosinophils # Basophils # Basophils # (Manual) 0.0 Myelocytes # 0.0 Nucleated Red Blood Cells # Platelet Estimate NORMAL Giant Platelets 8 H Platelet Morphology Comment @See below Sodium Level 139 Potassium Level 3.9 Chloride Level 108 Carbon Dioxide Level 26 Anion Gap 9 Blood Urea Nitrogen 11 Creatinine 0.92 Glucose Level 120 Calcium Level 8.2 L Phosphorus Level 2.8 Magnesium Level 2.1 Test 03/11/17 08:15 Bedside Glucose 127 Medications Medications Current Medications Lorazepam (Ativan) 0.5 mg Q8H PRN PO ANXIETY; Start 03/08/17 at 15:30 Ondansetron HCl (Zofran Inj) 4 mg Q6H PRN IV NAUSEA AND/OR VOMITING; Start at 15:30 Aspirin (Aspirin) 81 mg DAILY PO Last administered on 03/11/17 08:15; Admin Dose 81 MG; Start 03/09/17 at 09:00 Acetaminophen (Tylenol Tab) 650 mg Q6H PRN PO PAIN LEVEL 1-3 OR FEVER; Start 03/08/17 at 15:30 Morphine Sulfate (morphine) 2 mg Q4H PRN IV PAIN LEVEL 7-10; Start 03/08/17 at 15:30 Bisacodyl (Dulcolax) 5 mg DAILY PRN PO CONSTIPATION Last administered on 10:55; Admin Dose 5 MG; Start 03/08/17 at 15:30 Pantoprazole (Protonix Iv) 40 mg DAILY@06 IV Last administered on 03/11/17 06 :27; Admin Dose 40 MG; Start 03/09/17 at 06:00 Diagnostic Test (Pha) (Accu-Chek) 1 ea 02 XX Last administered on 03/09/17 02 :19; Admin Dose 1 EA; Start 03/09/17 at 02:00 Miscellaneous Information 1 ea NOTE XX ; Start 03/08/17 at 16:00 Glucose (Glutose) 15 gm Q15M PRN PO DECREASED GLUCOSE; Start 03/08/17 at 16:00 Glucose (Glutose) 22.5 gm Q15M PRN PO DECREASED GLUCOSE; Start 03/08/17 at 16: 00 Dextrose (D50w Syringe) 25 ml Q15M PRN IV DECREASED GLUCOSE; Start 03/08/17 at 16:00 Dextrose (D50w Syringe) 50 ml Q15M PRN IV DECREASED GLUCOSE; Start 03/08/17 at 16:00 Glucagon (Glucagen) 1 mg Q15M PRN IM DECREASED GLUCOSE; Start 03/08/17 at 16: 00 Glucose 15 gm 15 gm Q15M PRN BUCCAL DECREASED GLUCOSE; Start 03/08/17 at 16:00 Sodium Chloride (1/2 NS) 1,000 ml @ 50 mls/hr Q20H IV Last administered on 02:54; Admin Dose 50 MLS/HR; Start 03/09/17 at 09:30 Metoprolol Tartrate (Lopressor) 25 mg BID PO Last administered on 03/11/17 08 :16; Admin Dose 25 MG; Start 03/09/17 at 21:00 ALISE JONES MD Mar 11, 2017 11:11
[2017-03-11] MEDS ORDERED: DOCUSATE SODIUM 100 MG CAP PO PRN (11:30)
[2017-03-11] MEDS: MAGNESIUM HYDROXIDE 30ML CUP PO SCH (12:19)
[2017-03-12 00:05] VITALS: PULSE 66
[2017-03-12 00:43] VITALS: BP 96/59; RESP 22
[2017-03-12] MEDS: ACCU-CHEK XX SCH (02:00)
[2017-03-12 04:00] VITALS: BP 93/51; RESP 20
[2017-03-12 04:03] VITALS: PULSE 64
[2017-03-12] MEDS ORDERED: PANTOPRAZOLE (EC) 40 MG TAB PO SCH (06:00)
[2017-03-12 07:59] VITALS: BP 99/56; RESP 19
[2017-03-12] MEDS: INSULIN ASPART [NOVOLOG] 3 ML PEN SC SCH (08:00)
[2017-03-12] MEDS: ASPIRIN 81 MG TAB PO SCH (08:15)
[2017-03-12] MEDS: MAGNESIUM HYDROXIDE 30ML CUP PO SCH (08:15)
[2017-03-12] MEDS: METOPROLOL 25 MG TAB PO SCH (08:15)
[2017-03-12] MEDS ORDERED: VITAMIN A & D 5 GM OINT PACKET TOP ONE (08:21)
[2017-03-12] MEDS ORDERED: UDMOM PO (08:55)
[2017-03-12] MEDS ORDERED: DOCU-216 PO (08:55)
--- NOTE | 2017-03-12 09:03 | PDOCDIS ---
Discharge Instructions DIAGNOSIS Discharge Diagnosis 1. Atrial fibrillation with RVR- resolved 2. Hypertension, mild 3. anemia, likely chronic 4. Hypokalemia 5. Thrombocytopenia, chronic 6. Penile carcinoma 7. Constipation CONDITION Patient Condition: Good HOME CARE INSTRUCTIONS: Diet Instructions: Low Fat /Cholesterol ACTIVITY: Activity Restrictions: No Restrictions FOLLOW UP/APPOINTMENTS Follow-up Plan 1. Take medications as prescribed 2. Follow up with your primary care physician in 1 week. 3. If experiencing worsening symptoms, return to the emergency room 4. Follow up with Cardiology in 2-4 weeks 1. alfredo medicamentos richy se prescriben 2. Siga a dodd mdico de cabecera en 1 semana. 3. Si experimenta empeoramiento de los sntomas, vuelva a la [facility] 4. seguimiento con cardiologa en 2-4 semanas REFERRALS Other Referrals Abelardo Brady MD Specialty: Cardiology Office Address [address] [place] [address] [address] [place] [address] Office ALISE JONES MD Mar 12, 2017 09:03
--- NOTE | 2017-03-12 09:03 | PDOCDIS ---
Discharge Instructions DIAGNOSIS Discharge Diagnosis 1. Atrial fibrillation with RVR- resolved 2. Hypertension, mild 3. anemia, likely chronic 4. Hypokalemia 5. Thrombocytopenia, chronic 6. Penile carcinoma 7. Constipation CONDITION Patient Condition: Good HOME CARE INSTRUCTIONS: Diet Instructions: Low Fat /Cholesterol ACTIVITY: Activity Restrictions: No Restrictions FOLLOW UP/APPOINTMENTS Follow-up Plan 1. Take medications as prescribed 2. Follow up with your primary care physician in 1 week. 3. If experiencing worsening symptoms, return to the emergency room 4. Follow up with Cardiology in 2-4 weeks 1. alfredo medicamentos richy se prescriben 2. Siga a dodd mdico de cabecera en 1 semana. 3. Si experimenta empeoramiento de los sntomas, vuelva a la [facility] emerg[facility] 4. seguimiento con cardiologa en 2-4 semanas REFERRALS Other Referrals Abelardo Brady MD Specialty: Cardiology Office Address [address] [place] [address] [address] [place] [address] Office ALISE JONES MD Mar 12, 2017 09:03
--- NOTE | 2017-03-12 09:08 | PN ---
Date/Time of Note Date/Time of Note DATE: 03/12/17 TIME: 09:04 Assessment/Plan VTE Prophylaxis VTE Prophylaxis Intervention: SCD's Lines/Catheters IV Catheter Type (from Nrs): Peripheral IV Urinary Cath still in place: Yes Reason Cath still needed: urinary retention Assessment/Plan Assessment/Plan 1. Atrial fibrillation with RVR- controlled - Currently rate controlled and converted back to sinus - Cardiology on board and recommendations appreciated - On aspirin and metoprolol - Will need to have anticoagulation addressed in the future after penile cancer treatment 2. Hypertension, mild - Stable 3. anemia, likely chronic - Hgb stable with no signs of bleeding 4. Hypokalemia - Stable - continue monitoring 5. Thrombocytopenia, chronic - Stable with no signs of active bleeding or petechia 6. Penile carcinoma 7. Constipation - Had BM yesterday - will give stool softeners upon discharge 8. Disposition - patient remains rate controlled in sinus rhythm. Medically stable for discharge home with home health services Subjective 24 Hr Interval Summary Free Text/Dictation Patient doing well and had BM yesterday. Denies any further episodes of palpitations, chest pain, shortness of breath, or constipation. No acute overnight events. Exam/Review of Systems Vital Signs Vitals Vital Signs Date Time Temp Pulse Resp B/P Pulse Ox O2 Delivery O2 Flow Rate FiO2 03/12/17 07:59 98.1 65 19 99/56 98 03/08/17 17:00 Room Air Intake and Output 03/11/17 03/11/17 03/12/17 15:00 23:00 07:00 Intake Total 900 ml 200 ml Output Total 1500 ml 1900 ml Balance -600 ml -1700 ml Exam General: Patient in NAD. awake and alert Head: Normocephalic atraumatic Eyes: EOMI, pupils reactive to light Neck: Supple, nontender, midline Respiratory: Clear to auscultation bilaterally Cardiovascular: regular rate and rhythm, no obvious murmurs Gastrointestinal: non-tender to palpation, bowel sounds heard. : suprapubic catheter placed. CDI Neurological: Moves all extremities spontaneously Results Result Diagram: 03/11/17 0652 03/11/17 0652 Results 24 hrs Laboratory Tests Test 03/11/17 12:20 03/11/17 17:06 03/11/17 20:36 03/12/17 08:13 Bedside Glucose 138 114 137 130 Medications Medications Current Medications Lorazepam (Ativan) 0.5 mg Q8H PRN PO ANXIETY; Start 03/08/17 at 15:30 Ondansetron HCl (Zofran Inj) 4 mg Q6H PRN IV NAUSEA AND/OR VOMITING; Start at 15:30 Aspirin (Aspirin) 81 mg DAILY PO Last administered on 03/12/17 08:15; Admin Dose 81 MG; Start 03/09/17 at 09:00 Acetaminophen (Tylenol Tab) 650 mg Q6H PRN PO PAIN LEVEL 1-3 OR FEVER; Start 03/08/17 at 15:30 Morphine Sulfate (morphine) 2 mg Q4H PRN IV PAIN LEVEL 7-10; Start 03/08/17 at 15:30 Bisacodyl (Dulcolax) 5 mg DAILY PRN PO CONSTIPATION Last administered on 10:55; Admin Dose 5 MG; Start 03/08/17 at 15:30 Diagnostic Test (Pha) (Accu-Chek) 1 ea 02 XX Last administered on 03/09/17 02 :19; Admin Dose 1 EA; Start 03/09/17 at 02:00 Miscellaneous Information 1 ea NOTE XX ; Start 03/08/17 at 16:00 Glucose (Glutose) 15 gm Q15M PRN PO DECREASED GLUCOSE; Start 03/08/17 at 16:00 Glucose (Glutose) 22.5 gm Q15M PRN PO DECREASED GLUCOSE; Start 03/08/17 at 16: 00 Dextrose (D50w Syringe) 25 ml Q15M PRN IV DECREASED GLUCOSE; Start 03/08/17 at 16:00 Dextrose (D50w Syringe) 50 ml Q15M PRN IV DECREASED GLUCOSE; Start 03/08/17 at 16:00 Glucagon (Glucagen) 1 mg Q15M PRN IM DECREASED GLUCOSE; Start 03/08/17 at 16: 00 Glucose 15 gm 15 gm Q15M PRN BUCCAL DECREASED GLUCOSE; Start 03/08/17 at 16:00 Sodium Chloride (1/2 NS) 1,000 ml @ 50 mls/hr Q20H IV Last administered on 21:48; Admin Dose 50 MLS/HR; Start 03/09/17 at 09:30 Metoprolol Tartrate (Lopressor) 25 mg BID PO Last administered on 03/11/17 20 :37; Admin Dose 25 MG; Start 03/09/17 at 21:00 Magnesium Hydroxide (Milk Of Mag) 30 ml DAILY PO Last administered on 08:15; Admin Dose 30 ML; Start 03/11/17 at 11:30 Docusate Sodium (Colace) 100 mg BID PRN PO constipation; Start 03/11/17 at 11: 30 Pantoprazole (Protonix Tab) 40 mg DAILY@06 PO Last administered on 03/12/17 06:30; Admin Dose 40 MG; Start 03/12/17 at 06:00 ALISE JONES MD Mar 12, 2017 09:08
--- NOTE | 2017-03-12 09:08 | DS ---
Date/Time of Note Date/Time of Note DATE: 03/12/17 TIME: 09:08 Discharge Summary Admission/Discharge Info Admit Date/Time Mar 08, 2017 at 14:14 Discharge Date/Time Discharge Diagnosis 1. Atrial fibrillation with RVR- resolved 2. Hypertension, mild 3. anemia, likely chronic 4. Hypokalemia 5. Thrombocytopenia, chronic 6. Penile carcinoma 7. Constipation Patient Condition: Good Consults Cardiology- Dr Caitlyn Meyer of Present Illness Patient is a 71-year-old male with a past medical history of penile cancer with oncologist at [facility] who presents 1 day after discharge. Patient was previously admitted for inability to urinate, neurology was consulted during the previous admission who placed a suprapubic catheter. This admission is not related to the previous as patient's only brought in the patient for weakness and low blood pressure as well as palpitations. Patient was found to be in atrial fibrillation with RVR by the ED physician that responded well to diltiazem push. It appears patient also has a past medical history of hypertension on beta-hannah. Patient's daughter states that he has no known heart problems. Currently patient is rate controlled and has no other issues except feeling weak. Patient denies any chest pain, shortness of breath, nausea , vomiting, does state he does feel occasional palpitations Hospital Course Patient was admitted for cardiac workup and Cardiology was consulted. Per Cardiology, he was started back on Metoprolol and aspirin. ECHO was performed which showed normal echocardiogram with LVEF 55-60%. CHADS2 score was 2, but deferred starting anticoagulation at this time given anemia and ongoing therapy for penile cancer but will need to be re-addressed as outpatient. Patients UA was negative for any infection and lactic acid normalized with IVF. Patient converted back to sinus and remained rate controlled. Patient was experiencing constipation and given stool softeners for relief. Patient was advised to follow up with his urologist as previously instructed for catheter management. Patient was discharged home in good condition. Home Meds Active Scripts Docusate Sodium (Dok) 100 Mg Capsule, 100 MG PO BID Y for constipation for 30 Days, #30 CAP Prov:ALISE JONES MD 03/12/17 Magnesium Hydroxide* (Zepeda' MOM*) 30 Ml Susp, 30 ML PO DAILY for 30 Days, # 30 PACKET Prov:ALISE JONES MD 03/12/17 Reported Medications Glipizide* (Glipizide*) 5 Mg Tablet, 5 MG PO AC BREAKFAST DINNER, TAB 03/05/17 Metoprolol Tartrate* (Lopressor*) 25 Mg Tab, 25 MG PO BID, #60 TAB 03/05/17 Aspirin (Aspir-Low) 81 Mg Tablet.dr, 81 MG PO DAILY 03/05/17 Discontinued Reported Medications Docusate Sodium* (Colace*) 100 Mg Capsule, 100 MG PO BID, #60 CAP 03/05/17 Hydrocodone/Acetaminophen ([place] 10-325 Tablet) 1 Each Tablet, 1 EACH PO Q6H, TAB 03/05/17 Filgrastim-Sndz (Zarxio) 300 Mcg/0.5 Ml Syringe, 300 MCG IJ DAILY TAKE FOR 7 DAYS ,START DATE 03/04/17 03/05/17 Follow-up Plan 1. Take medications as prescribed 2. Follow up with your primary care physician in 1 week. 3. If experiencing worsening symptoms, return to the emergency room 4. Follow up with Cardiology in 2-4 weeks 1. alfredo medicamentos richy se prescriben 2. Siga a dodd mdico de cabecera en 1 semana. 3. Si experimenta empeoramiento de los sntomas, vuelva a la randy de emergencias 4. seguimiento con cardiologa en 2-4 semanas Primary Care Provider Not On Staff Doctor Time spent on discharge: > 30 minutes Pending Labs Laboratory Tests Test 03/11/17 12:20 03/11/17 17:06 03/11/17 20:36 03/12/17 08:13 Bedside Glucose 138mg/dL (70-220) 114mg/dL (70-220) 137mg/dL (70-220) 130mg/dL (70-220) ALISE JONES MD Mar 12, 2017 09:08 Primary Care Provider Not On Staff Doctor Pending Labs Laboratory Tests Test 03/11/17 12:20 03/11/17 17:06 03/11/17 20:36 03/12/17 08:13 Bedside Glucose 138mg/dL (70-220) 114mg/dL (70-220) 137mg/dL (70-220) 130mg/dL (70-220) ALISE JONES MD Mar 12, 2017 09:08
[2017-03-12 09:29] VITALS: PULSE 65
== END 2017-03-12 12:05 | disposition home or self-care (01) | DRG 309 ==
LOC: E/R 11:58 → MS4 14:14
PROVIDERS: ADMIT Hospitalist; ATTEND Hospitalist
DX: I48.0 Paroxysmal atrial fibrillation (principal); E87.2 Acidosis; D69.6 Thrombocytopenia, unspecified; C60.9 Malignant neoplasm of penis, unspecified; I10 Essential (primary) hypertension; D63.8 Anemia in other chronic diseases classified elsewhere; E11.9 Type 2 diabetes mellitus without complications; E87.6 Hypokalemia; Z79.4 Long term (current) use of insulin; K59.00 Constipation, unspecified; R53.1 Weakness; R33.9 Retention of urine, unspecified; Z79.82 Long term (current) use of aspirin
CPT/HCPCS: 36415; 71010; 80048; 80053; 80061; 81001; 82728; 82962; 83540; 83605; 83735; 84100; 84439; 84443; 84484; 85025; 85045; 85610; 85730; 86022; 87040; 87086; 93005; 93306; 96372; 96374; 96375; 97162; 97166; C9113; J1650; J1815; J3475; J3480; J7030; J7040

== ENCOUNTER 2017-05-14 11:27 | Inpatient (IN) | END 2017-05-17 13:19 | disposition home health service (06) | DRG 872 ==

== ENCOUNTER 2017-11-10 11:30 | Emergency (ER) | END 2017-11-11 01:30 | disposition short-term general hospital (02) ==

== ENCOUNTER 2018-01-16 11:33 | Emergency (ER) | END 2018-01-16 13:00 | disposition home or self-care (01) ==

== ENCOUNTER 2019-03-11 13:03 | Emergency (ER) | payer MEDICARE, OTHER ==
[~2019-03-11] VITALS: Ht 170.2 cm; Wt 77.2 kg
[~2019-03-11 13:03] MED LIST changes: -ASPI81TA50 PO; +CIPR500T4 PO; -DOCU-144 PO; +FILG300S2 IJ; +FURO-109 PO; +HYDR-3601 PO; -HYDR-902 PO; -METO-448 PO; +ONDA4TAB8 PO
[2019-03-11 13:09] VITALS: Ht 170.2 cm; Wt 77.2 kg
[2019-03-11 18:09] VITALS: BP 144/78; PULSE 74; RESP 18
== END 2019-03-11 18:10 | disposition home or self-care (01) ==
LOC: E/R 13:03
DX: N39.0 Urinary tract infection, site not specified (principal); I10 Essential (primary) hypertension; Z85.49 Personal history of malignant neoplasm of other male genital organs
CPT/HCPCS: 80048; 81001; 85025; 87086; 99283